=== PATIENT | male | born 1965 ===

== ENCOUNTER 2022-04-12 16:59 | Inpatient (IN) | payer MEDICAID ==
[2022-04-13 21:46] LABS: Hematocrit 37.1 % (35.5-45.6); Mean Corpuscular HGB Conc 35 % (32-34); Mean Corpuscular Volume 88 fl (84-94); Platelet Count 139 K/mm3 (140-440); Red Blood Count 4.24 M/mm3 (3.65-5.03); Red Cell Distribution Width 13.3 % (13.2-15.2)
[2022-04-13 22:03] LABS: Alanine Aminotransferase 38 units/L (7-56); Albumin 3.6 g/dL (3.9-5); BUN/Creatinine Ratio 14; Blood Urea Nitrogen 11 mg/dL (9-20); Calcium 8.9 mg/dL (8.4-10.2); Hemolysis Index 72
[2022-04-13 22:27] LABS: Eosinophils % (Manual) 0 % (0.0-4.3); Platelet Estimate Consistent w Auto; RBC Morphology Normal; Total Cells Counted 100
[2022-04-13] MEDS: INSULIN LISPRO 100 UNIT/ML SUB-Q SCH (22:35)
[2022-04-13] MEDS ORDERED: QUEtiapine 25 MG TAB PO SCH (23:00)
[2022-04-13] MEDS: ACETAMINOPHEN 325 MG TAB PO PRN (23:19)
[2022-04-13] MEDS: hydrOXYzine PAMOATE 25 MG CAP PO PRN (23:19)
--- NOTE | 2022-04-14 10:41 | History and Physical Report ---
GP History & Physical - History of Present Illness Date of admission: 04/13/22 Date of Examination: 04/14/22 Reason for Admission: Danger to self, Failure of Outpatient Treatment, Severe anxiety/depression History of Present Illness: The patient was seen today. He was admitted for suicidal thoughts. The patient says he had just got out of correction and was having bad thoughts. The patient also says he had been off his meds. He says he has a history of Bipolar. He says he takes seroquel 25mg three times daily, celexa 40 and trazodone 50. The patient denies hallucinations. He says he had been depressed about things in his life. He denies any illicit drug use, alcohol or nicotine. PAST PSYCHIATRIC HISTORY: Diagnoses: Bipolar Suicide attempts or Self-harm behavior: Yes Prior psychiatric hospitalizations: Yes Substance Abuse history: Denies Previous psychiatric medications tried: seroquel, celexa, trazodone Outpatient treatment: yes PAST MEDICAL HISTORY: None reported Family Psychiatric History: None reported or documented SOCIAL HISTORY Marital Status: Single Living Arrangements: alone Employment Status: Disabled Access to guns/weapons: Denies Education: History of Abuse: Denies Legal History: Denies REVIEW OF SYSTEMS ROS cannot be reliably obtained from the patient due to her confusion and somnolence. Constitutional: Negative for weight loss ENT: Negative for stridor Respiratory: Negative for cough or hemoptysis All other systems reviewed and are negative Diagnoses: Bipolar Disorder Treatment Plan Patient will be admitted for inpatient psychiatric evaluation, medication adjustment and close monitoring The patient's behavior, mood, sleep and appetite will be closely monitored. Patient will be enrolled in individual and group therapeutic sessions and encouraged to attend. Patient will be provided with a safe and structured environment. Patient's physical health needs will be addressed by the Hospitalist. Hospitalist Consulted Labs including CBC, CMP, Lipid profile and Hemoglobin A1C ordered Social Assessment will be completed and the Residential Monitor will work with patient and family to ensure a suitable and safe disposition Medication adjustment will be made as clinically indicated Celexa 40mg po daily Trazodone 50mg po qhs Increase Seroquel 25mg po TID The patient agreed on the treatment plan, understood LOS: 7 days Case staffed with Dr. Cruz Legal Status: Voluntary Reaction to Hospitalization: Accepting Medications and Allergies Allergies Allergy/AdvReac Type Severity Reaction Status Date / Time No Known Allergies Allergy Unverified 04/13/22 15:47 Home Medications Medication Instructions Recorded Confirmed Last Taken Type Acetaminophen [Tylenol] 650 mg PO Q6HR PRN 04/13/22 04/13/22 Unknown History AtorvaSTATin [Lipitor] 20 mg PO HS 04/13/22 04/13/22 Unknown History Gabapentin [Neurontin] 300 mg PO TID 04/13/22 04/13/22 Unknown History Insulin Glargine [Lantus VIAL] 40 unit SUB-Q Q 04/13/22 04/13/22 Unknown History Nabumetone [Relafen] 500 mg PO DAILY 04/13/22 04/13/22 Unknown History QUEtiapine [SEROquel] 25 mg PO BID 04/13/22 04/13/22 Unknown History busPIRone [Buspar] 5 mg PO TID 04/13/22 04/13/22 Unknown History hydrOXYzine HCL [Atarax] 25 mg PO Q6HR PRN 04/13/22 04/13/22 Unknown History lisinopriL [Lisinopril] 20 mg PO DAILY 04/13/22 04/13/22 Unknown History tiZANidine [Zanaflex 4mg TAB] 4 mg PO TID PRN 04/13/22 04/13/22 Unknown History Active Meds: Active Medications Acetaminophen (Acetaminophen 325 Mg Tab) 650 mg PO Q6H PRN PRN Reason: Pain, Mild (1-3) Last Admin: 04/13/22 23:19 Dose: 650 mg Buspirone HCl (Buspirone 5 Mg Tab) 5 mg PO TID [facility] Gabapentin (Gabapentin 300 Mg Cap) 300 mg PO TID [facility] Hydroxyzine Pamoate (Hydroxyzine Pamoate 25 Mg Cap) 25 mg PO Q6H PRN PRN Reason: Anxiety Last Admin: 04/13/22 23:19 Dose: 25 mg Insulin Human Lispro (Insulin Lispro 100 Unit/Ml) 0 unit SUB-Q [facility]; Protocol Last Admin: 04/13/22 22:35 Dose: 3 unit Quetiapine Fumarate (Quetiapine 25 Mg Tab) 25 mg PO BID [facility] Last Admin: 04/13/22 23:19 Dose: 25 mg Tizanidine HCl (Tizanidine Tab 4 Mg Tab) 4 mg PO Q8H PRN PRN Reason: Muscle Spasm Results - Results Labs/Vitals: Laboratory Last Values WBC 3.7 K/mm3 (4.5-11.0) L 04/13/22 21:12 RBC 4.24 M/mm3 (3.65-5.03) 04/13/22 21:12 Hgb 13.0 gm/dl (11.8-15.2) 04/13/22 21:12 Hct 37.1 % (35.5-45.6) 04/13/22 21:12 MCV 88 fl (84-94) 04/13/22 21:12 MCH 31 pg (28-32) 04/13/22 21:12 MCHC 35 % (32-34) H 04/13/22 21:12 RDW 13.3 % (13.2-15.2) 04/13/22 21:12 Plt Count 139 K/mm3 (140-440) L 04/13/22 21:12 Lymph % (Auto) Sales Teacher 04/13/22 21:12 Add Manual Diff Complete 04/13/22 21:12 Total Counted 100 04/13/22 21:12 Seg Neutrophils % Sales Teacher 04/13/22 21:12 Seg Neuts % (Manual) 28.0 % (40.0-70.0) L 04/13/22 21:12 Band Neutrophils % 0 % 04/13/22 21:12 Lymphocytes % (Manual) 64.0 % (13.4-35.0) H 04/13/22 21:12 Reactive Lymphs % (Man) 0 % 04/13/22 21:12 Monocytes % (Manual) 7.0 % (0.0-7.3) 04/13/22 21:12 Eosinophils % (Manual) 0 % (0.0-4.3) 04/13/22 21:12 Basophils % (Manual) 1.0 % (0.0-1.8) 04/13/22 21:12 Metamyelocytes % 0 % 04/13/22 21:12 Myelocytes % 0 % 04/13/22 21:12 Promyelocytes % 0 % 04/13/22 21:12 Blast Cells % 0 % 04/13/22 21:12 Nucleated RBC % Not Reportable 04/13/22 21:12 Seg Neutrophils # Man 1.0 K/mm3 (1.8-7.7) L 04/13/22 21:12 Band Neutrophils # 0.0 K/mm3 04/13/22 21:12 Lymphocytes # (Manual) 2.4 K/mm3 (1.2-5.4) 04/13/22 21:12 Abs React Lymphs (Man) 0.0 K/mm3 04/13/22 21:12 Monocytes # (Manual) 0.3 K/mm3 (0.0-0.8) 04/13/22 21:12 Eosinophils # (Manual) 0.0 K/mm3 (0.0-0.4) 04/13/22 21:12 Basophils # (Manual) 0.0 K/mm3 (0.0-0.1) 04/13/22 21:12 Metamyelocytes # 0.0 K/mm3 04/13/22 21:12 Myelocytes # 0.0 K/mm3 04/13/22 21:12 Promyelocytes # 0.0 K/mm3 04/13/22 21:12 Blast Cells # 0.0 K/mm3 04/13/22 21:12 WBC Morphology Not Reportable 04/13/22 21:12 Hypersegmented Neuts Not Reportable 04/13/22 21:12 Hyposegmented Neuts Not Reportable 04/13/22 21:12 Hypogranular Neuts Not Reportable 04/13/22 21:12 Smudge Cells Not Reportable 04/13/22 21:12 Toxic Granulation Not Reportable 04/13/22 21:12 Toxic Vacuolation Not Reportable 04/13/22 21:12 Dohle Bodies Not Reportable 04/13/22 21:12 Pelger-Huet Anomaly Not Reportable 04/13/22 21:12 Davida Rods Not Reportable 04/13/22 21:12 Platelet Estimate Consistent w auto 04/13/22 21:12 Clumped Platelets Not Reportable 04/13/22 21:12 Plt Clumps, EDTA Not Reportable 04/13/22 21:12 Large Platelets Not Reportable 04/13/22 21:12 Giant Platelets Not Reportable 04/13/22 21:12 Platelet Satelliting Not Reportable 04/13/22 21:12 Plt Morphology Comment Not Reportable 04/13/22 21:12 RBC Morphology Normal 04/13/22 21:12 Dimorphic RBCs Not Reportable 04/13/22 21:12 Polychromasia Not Reportable 04/13/22 21:12 Hypochromasia Not Reportable 04/13/22 21:12 Poikilocytosis Not Reportable 04/13/22 21:12 Anisocytosis Not Reportable 04/13/22 21:12 Microcytosis Not Reportable 04/13/22 21:12 Macrocytosis Not Reportable 04/13/22 21:12 Spherocytes Not Reportable 04/13/22 21:12 Pappenheimer Bodies Not Reportable 04/13/22 21:12 Sickle Cells Not Reportable 04/13/22 21:12 Target Cells Not Reportable 04/13/22 21:12 Tear Drop Cells Not Reportable 04/13/22 21:12 Ovalocytes Not Reportable 04/13/22 21:12 Helmet Cells Not Reportable 04/13/22 21:12 [place] Bodies Not Reportable 04/13/22 21:12 Mayer Rings Not Reportable 04/13/22 21:12 [place] Cells Not Reportable 04/13/22 21:12 Bite Cells Not Reportable 04/13/22 21:12 Crenated Cell Not Reportable 04/13/22 21:12 Elliptocytes Not Reportable 04/13/22 21:12 Acanthocytes (Spur) Not Reportable 04/13/22 21:12 Rouleaux Not Reportable 04/13/22 21:12 Hemoglobin C Crystals Not Reportable 04/13/22 21:12 Schistocytes Not Reportable 04/13/22 21:12 Malaria parasites Not Reportable 04/13/22 21:12 Jose Bodies Not Reportable 04/13/22 21:12 Hem Pathologist Commnt No 04/13/22 21:12 Sodium 142 mmol/L (137-145) 04/13/22 21:12 Potassium 4.0 mmol/L (3.6-5.0) 04/13/22 21:12 Chloride 108.7 mmol/L (98-107) H 04/13/22 21:12 Carbon Dioxide 23 mmol/L (22-30) 04/13/22 21:12 Anion Gap 14 mmol/L 04/13/22 21:12 BUN 11 mg/dL (9-20) 04/13/22 21:12 Creatinine 0.8 mg/dL (0.8-1.3) 04/13/22 21:12 Estimated GFR > 60 ml/min 04/13/22 21:12 BUN/Creatinine Ratio 14 % 04/13/22 21:12 Glucose 158 mg/dL (75-100) H 04/13/22 21:12 POC Glucose 108 mg/dL (70-105) H 04/14/22 06:55 Calcium 8.9 mg/dL (8.4-10.2) 04/13/22 21:12 Total Bilirubin 0.30 mg/dL (0.1-1.2) 04/13/22 21:12 AST 39 units/L (5-40) 04/13/22 21:12 ALT 38 units/L (7-56) 04/13/22 21:12 Alkaline Phosphatase 65 units/L (35-129) 04/13/22 21:12 Total Protein 6.3 g/dL (6.3-8.2) 04/13/22 21:12 Albumin 3.6 g/dL (3.9-5) L 04/13/22 21:12 Albumin/Globulin Ratio 1.3 % 04/13/22 21:12 Last Vital Signs Temp 98.6 F 04/13/22 22:00 Pulse 86 04/13/22 22:00 Resp 99 H 04/13/22 22:00 BP 132/77 04/13/22 22:00 Pulse Ox 99 04/13/22 22:00 Physical Examination - Constitutional Vitals: Vital Signs Temp Pulse Resp BP Pulse Ox 98.6 F 86 99 H 132/77 99 04/13/22 22:00 04/13/22 22:00 04/13/22 22:00 04/13/22 22:00 04/13/22 22:00 Temperature -Last 24 Hours Temperature 98.6 F Mental Status Exam - Vital signs Last Vital Signs Temp 98.6 F 04/13/22 22:00 Pulse 86 04/13/22 22:00 Resp 99 H 04/13/22 22:00 BP 132/77 04/13/22 22:00 Pulse Ox 99 04/13/22 22:00 Physician Certification - Certification Statement Physician Certification Statement: This is an acknowledgement statement that LUZ ELENA BIRCH is a 56 year old M who requires inpatient psychiatric admission for treatment which could reasonably be expected to improve the patient's condition for Estimated period of time patient will need to remain in the hospital: [ ] Plan for post-hospital care: [ ]
[2022-04-14] MEDS: INSULIN LISPRO 100 UNIT/ML SUB-Q SCH ×5 (10:53→23:09)
[2022-04-14] MEDS: busPIRone 5 MG TAB PO SCH ×3 (10:57→21:57)
[2022-04-14] MEDS: GABAPENTIN 300 MG CAP PO SCH ×3 (10:57→21:57)
[2022-04-14] MEDS: QUEtiapine 25 MG TAB PO SCH ×2 (14:00→21:57)
[2022-04-14] MEDS: CITALOPRAM 20 MG TAB PO SCH (16:41)
[2022-04-14] MEDS: ACETAMINOPHEN 325 MG TAB PO PRN (17:31)
--- NOTE | 2022-04-14 20:31 | Consultation ---
History of Present Illness - Reason for Consult Consult date: 04/14/22 Medical consult/management Requesting physician: AYUSH TOWNSEND - History of Present Illness 56-year-old male patient with significant past medical history of bipolar disorder, severe anxiety, severe depression recently out of long-term was having bad thoughts and was danger to self and failure of outpatient treatment patient was admitted to [facility] psych unit hospitalist services was consulted for medical consult and management patient also has history of peripheral neuropathy, type 2 diabetes mellitus, hypertension, dyslipidemia. Patient also gives history of multiple neck surgeries Patient denies any chest pain or shortness of breath, denies any nausea vomiting headache or dizziness. Past History Past Medical History: diabetes, hypertension, hyperlipidemia, other (Peripheral neuropathy) Past Surgical History: Other (Neck and back surgeries) Social history: denies: smoking, alcohol abuse, prescription drug abuse Family history: no significant family history Medications and Allergies Allergies Allergy/AdvReac Type Severity Reaction Status Date / Time No Known Allergies Allergy Verified 04/14/22 11:25 Home Medications Medication Instructions Recorded Confirmed Last Taken Type Acetaminophen [Tylenol] 650 mg PO Q6HR PRN 04/13/22 04/13/22 Unknown History AtorvaSTATin [Lipitor] 20 mg PO HS 04/13/22 04/13/22 Unknown History Gabapentin [Neurontin] 300 mg PO TID 04/13/22 04/13/22 Unknown History Insulin Glargine [Lantus VIAL] 40 unit SUB-Q [facility] 04/13/22 04/13/22 Unknown History Nabumetone [Relafen] 500 mg PO DAILY 04/13/22 04/13/22 Unknown History QUEtiapine [SEROquel] 25 mg PO BID 04/13/22 04/13/22 Unknown History busPIRone [Buspar] 5 mg PO TID 04/13/22 04/13/22 Unknown History hydrOXYzine HCL [Atarax] 25 mg PO Q6HR PRN 04/13/22 04/13/22 Unknown History lisinopriL [Lisinopril] 20 mg PO DAILY 04/13/22 04/13/22 Unknown History tiZANidine [Zanaflex 4mg TAB] 4 mg PO TID PRN 04/13/22 04/13/22 Unknown History Active Meds: Active Medications Acetaminophen (Acetaminophen 325 Mg Tab) 650 mg PO Q6H PRN PRN Reason: Pain, Mild (1-3) Last Admin: 04/14/22 17:31 Dose: 650 mg Buspirone HCl (Buspirone 5 Mg Tab) 5 mg PO TID [facility] Last Admin: 04/14/22 16:44 Dose: 5 mg Citalopram Hydrobromide (Citalopram 20 Mg Tab) 40 mg PO QDAY [facility] Last Admin: 04/14/22 16:41 Dose: 40 mg Gabapentin (Gabapentin 300 Mg Cap) 300 mg PO TID [facility] Last Admin: 04/14/22 16:41 Dose: 300 mg Hydroxyzine Pamoate (Hydroxyzine Pamoate 25 Mg Cap) 25 mg PO Q6H PRN PRN Reason: Anxiety Last Admin: 04/13/22 23:19 Dose: 25 mg Insulin Human Lispro (Insulin Lispro 100 Unit/Ml) 0 unit SUB-Q [facility]; Protocol Last Admin: 04/14/22 16:55 Dose: 3 unit Quetiapine Fumarate (Quetiapine 25 Mg Tab) 25 mg PO TID [facility] Last Admin: 04/14/22 14:00 Dose: Not Given Tizanidine HCl (Tizanidine Tab 4 Mg Tab) 4 mg PO Q8H PRN PRN Reason: Muscle Spasm Trazodone HCl (Trazodone 50 Mg Tab) 50 mg PO QHS [facility] Review of Systems Constitutional: weakness, no weight loss, no weight gain, no fever, no chills Ears, nose, mouth and throat: no nasal congestion, no nasal discharge Cardiovascular: no chest pain, no orthopnea Respiratory: shortness of breath, dyspnea on exertion, no cough, no cough with sputum Gastrointestinal: no nausea, no vomiting, no diarrhea Genitourinary Male: no dysuria, no hematuria Musculoskeletal: no myalgias, no arthritis Integumentary: no rash, no lesions Neurological: no paralysis, no weakness, no parathesias Psychiatric: anxiety, no memory loss Endocrine: no cold intolerance, no heat intolerance Hematologic/Lymphatic: no easy bruising, no easy bleeding Allergic/Immunologic: no urticaria, no allergic rhinitis Exam - Constitutional Vitals: Temp Pulse Resp BP Pulse Ox 98.6 F 86 99 H 132/77 99 04/13/22 22:00 04/13/22 22:00 04/13/22 22:00 04/13/22 22:00 04/13/22 22:00 General appearance: Present: no acute distress, well-nourished - EENT Eyes: Present: PERRL, EOM intact - Neck Neck: Present: supple, normal ROM - Respiratory Respiratory effort: normal Respiratory: bilateral: diminished, negative: rales, rhonchi, wheezing - Cardiovascular Rhythm: regular Heart Sounds: Present: S1 & S2 - Extremities Extremities: no ischemia, No edema - Abdominal General gastrointestinal: Present: soft, non-tender, non-distended, normal bowel sounds - Integumentary Integumentary: Present: clear, warm - Musculoskeletal Musculoskeletal: strength equal bilaterally, generalized weakness - Psychiatric Psychiatric: appropriate mood/affect, cooperative - Neurologic Neurologic: moves all extremities Results - Labs CBC & Chem 7: 04/13/22 21:12 04/13/22 21:12 Labs: Abnormal lab results 04/13/22 04/13/22 04/14/22 Range/Units 21:12 21:12 06:55 WBC 3.7 L (4.5-11.0) K/mm3 MCHC 35 H (32-34) % Plt Count 139 L (140-440) K/mm3 Seg Neuts % (Manual) 28.0 L (40.0-70.0) % Lymphocytes % (Manual) 64.0 H (13.4-35.0) % Seg Neutrophils # Man 1.0 L (1.8-7.7) K/mm3 Chloride 108.7 H (98-107) mmol/L Glucose 158 H (75-100) mg/dL POC Glucose 108 H (70-105) mg/dL Albumin 3.6 L (3.9-5) g/dL 04/14/22 04/14/22 Range/Units 11:02 16:20 WBC (4.5-11.0) K/mm3 MCHC (32-34) % Plt Count (140-440) K/mm3 Seg Neuts % (Manual) (40.0-70.0) % Lymphocytes % (Manual) (13.4-35.0) % Seg Neutrophils # Man (1.8-7.7) K/mm3 Chloride (98-107) mmol/L Glucose (75-100) mg/dL POC Glucose 120 H 218 H (70-105) mg/dL Albumin (3.9-5) g/dL Assessment and Plan Suicidal ideation/danger to self/severe anxiety/severe depression; Management per psych team, supportive care -- Hypertension; moderate control Resume home antihypertensives and as needed medications -- Peripheral neuropathy; Resume home gabapentin and supportive care -- Dyslipidemia; Low-cholesterol diet, and statin -- Type 2 diabetes mellitus; Accu-Chek, sliding scale coverage, ADA diet Long-acting insulin as needed -- DVT prophylaxis; SCDs while resting, ambulate as tolerated -- Full CODE STATUS; Closely monitor the patient and adjust the management as needed Plan of care reviewed with the patient and his nurse Thank you for this consultation We will follow the patient along with you Call us with questions
[2022-04-14] MEDS: traZODone 50 MG TAB PO SCH (21:57)
--- NOTE | 2022-04-15 08:22 | Progress Note ---
Subjective Date of service: 04/15/22 Principal diagnosis: bipolar disorder Subjective Comment: The patient was seen today. He is calm and cooperative. He denies SI/HI or hallucinations of any kind. REVIEW OF SYSTEMS ROS cannot be reliably obtained from the patient due to her confusion and somnolence. Constitutional: Negative for weight loss ENT: Negative for stridor Respiratory: Negative for cough or hemoptysis All other systems reviewed and are negative MENTAL STATUS EXAMINATION General Appearance and Behavior: Age appropriate, wearing appropriate clothes, cooperative, polite with questioning, good eye contact Cooperation: cooperative Psychomotor Behavior: Psychomotor normal Mood: good Affect and affective range: congruent with stated affect Thought Process: Goal directed Thought Content: None Speech: Normal volume, Regular rate and rhythm Suicidal Ideation: Denies Homicidal Ideation: Denies Hallucination: Denies Delusions: None elicited Impulse Control: Limited Insight and Judgment: Limited Memory: Intact Attention:attentive Orientation: Alert and oriented Diagnoses: Bipolar Disorder Treatment Plan Patient will be admitted for inpatient psychiatric evaluation, medication adjustment and close monitoring The patient's behavior, mood, sleep and appetite will be closely monitored. Patient will be enrolled in individual and group therapeutic sessions and encouraged to attend. Patient will be provided with a safe and structured environment. Patient's physical health needs will be addressed by the Hospitalist. Hospitalist Consulted Labs including CBC, CMP, Lipid profile and Hemoglobin A1C ordered Social Assessment will be completed and the Software Engineer Web Applications will work with patient and family to ensure a suitable and safe disposition Medication adjustment will be made as clinically indicated No changes made today The patient agreed on the treatment plan, understood LOS: 7 days Case staffed with Dr. Cruz Medications and Allergies Allergies Allergy/AdvReac Type Severity Reaction Status Date / Time No Known Allergies Allergy Verified 04/14/22 11:25 Home Medications Medication Instructions Recorded Confirmed Last Taken Type Acetaminophen [Tylenol] 650 mg PO Q6HR PRN 04/13/22 04/13/22 Unknown History AtorvaSTATin [Lipitor] 20 mg PO HS 04/13/22 04/13/22 Unknown History Gabapentin [Neurontin] 300 mg PO TID 04/13/22 04/13/22 Unknown History Insulin Glargine [Lantus VIAL] 40 unit SUB-Q QHS 04/13/22 04/13/22 Unknown History Nabumetone [Relafen] 500 mg PO DAILY 04/13/22 04/13/22 Unknown History QUEtiapine [SEROquel] 25 mg PO BID 04/13/22 04/13/22 Unknown History busPIRone [Buspar] 5 mg PO TID 04/13/22 04/13/22 Unknown History hydrOXYzine HCL [Atarax] 25 mg PO Q6HR PRN 04/13/22 04/13/22 Unknown History lisinopriL [Lisinopril] 20 mg PO DAILY 04/13/22 04/13/22 Unknown History tiZANidine [Zanaflex 4mg TAB] 4 mg PO TID PRN 04/13/22 04/13/22 Unknown History Active Meds: Active Medications Acetaminophen (Acetaminophen 325 Mg Tab) 650 mg PO Q6H PRN PRN Reason: Pain, Mild (1-3) Last Admin: 04/14/22 17:31 Dose: 650 mg Buspirone HCl (Buspirone 5 Mg Tab) 5 mg PO TID ON LICENSE OF [facility] Last Admin: 04/14/22 21:57 Dose: 5 mg Citalopram Hydrobromide (Citalopram 20 Mg Tab) 40 mg PO QDAY ON LICENSE OF [facility] Last Admin: 04/14/22 16:41 Dose: 40 mg Gabapentin (Gabapentin 300 Mg Cap) 300 mg PO TID ON LICENSE OF [facility] Last Admin: 04/14/22 21:57 Dose: 300 mg Hydroxyzine Pamoate (Hydroxyzine Pamoate 25 Mg Cap) 25 mg PO Q6H PRN PRN Reason: Anxiety Last Admin: 04/13/22 23:19 Dose: 25 mg Insulin Human Lispro (Insulin Lispro 100 Unit/Ml) 0 unit SUB-Q [facility] ON LICENSE OF [facility]; Protocol Last Admin: 04/14/22 23:09 Dose: 2 unit Quetiapine Fumarate (Quetiapine 25 Mg Tab) 25 mg PO TID ON LICENSE OF [facility] Last Admin: 04/14/22 21:57 Dose: 25 mg Tizanidine HCl (Tizanidine Tab 4 Mg Tab) 4 mg PO Q8H PRN PRN Reason: Muscle Spasm Trazodone HCl (Trazodone 50 Mg Tab) 50 mg PO QHS ON LICENSE OF [facility] Last Admin: 04/14/22 21:57 Dose: 50 mg Results - Results Labs/Vitals: Laboratory Last Values WBC 3.7 K/mm3 (4.5-11.0) L 04/13/22 21:12 RBC 4.24 M/mm3 (3.65-5.03) 04/13/22 21:12 Hgb 13.0 gm/dl (11.8-15.2) 04/13/22 21:12 Hct 37.1 % (35.5-45.6) 04/13/22 21:12 MCV 88 fl (84-94) 04/13/22 21:12 MCH 31 pg (28-32) 04/13/22 21:12 MCHC 35 % (32-34) H 04/13/22 21:12 RDW 13.3 % (13.2-15.2) 04/13/22 21:12 Plt Count 139 K/mm3 (140-440) L 04/13/22 21:12 Lymph % (Auto) Chiropractor Sole Practitioner 04/13/22 21:12 Add Manual Diff Complete 04/13/22 21:12 Total Counted 100 04/13/22 21:12 Seg Neutrophils % Chiropractor Sole Practitioner 04/13/22 21:12 Seg Neuts % (Manual) 28.0 % (40.0-70.0) L 04/13/22 21:12 Band Neutrophils % 0 % 04/13/22 21:12 Lymphocytes % (Manual) 64.0 % (13.4-35.0) H 04/13/22 21:12 Reactive Lymphs % (Man) 0 % 04/13/22 21:12 Monocytes % (Manual) 7.0 % (0.0-7.3) 04/13/22 21:12 Eosinophils % (Manual) 0 % (0.0-4.3) 04/13/22 21:12 Basophils % (Manual) 1.0 % (0.0-1.8) 04/13/22 21:12 Metamyelocytes % 0 % 04/13/22 21:12 Myelocytes % 0 % 04/13/22 21:12 Promyelocytes % 0 % 04/13/22 21:12 Blast Cells % 0 % 04/13/22 21:12 Nucleated RBC % Not Reportable 04/13/22 21:12 Seg Neutrophils # Man 1.0 K/mm3 (1.8-7.7) L 04/13/22 21:12 Band Neutrophils # 0.0 K/mm3 04/13/22 21:12 Lymphocytes # (Manual) 2.4 K/mm3 (1.2-5.4) 04/13/22 21:12 Abs React Lymphs (Man) 0.0 K/mm3 04/13/22 21:12 Monocytes # (Manual) 0.3 K/mm3 (0.0-0.8) 04/13/22 21:12 Eosinophils # (Manual) 0.0 K/mm3 (0.0-0.4) 04/13/22 21:12 Basophils # (Manual) 0.0 K/mm3 (0.0-0.1) 04/13/22 21:12 Metamyelocytes # 0.0 K/mm3 04/13/22 21:12 Myelocytes # 0.0 K/mm3 04/13/22 21:12 Promyelocytes # 0.0 K/mm3 04/13/22 21:12 Blast Cells # 0.0 K/mm3 04/13/22 21:12 WBC Morphology Not Reportable 04/13/22 21:12 Hypersegmented Neuts Not Reportable 04/13/22 21:12 Hyposegmented Neuts Not Reportable 04/13/22 21:12 Hypogranular Neuts Not Reportable 04/13/22 21:12 Smudge Cells Not Reportable 04/13/22 21:12 Toxic Granulation Not Reportable 04/13/22 21:12 Toxic Vacuolation Not Reportable 04/13/22 21:12 Dohle Bodies Not Reportable 04/13/22 21:12 Pelger-Huet Anomaly Not Reportable 04/13/22 21:12 Davida Rods Not Reportable 04/13/22 21:12 Platelet Estimate Consistent w auto 04/13/22 21:12 Clumped Platelets Not Reportable 04/13/22 21:12 Plt Clumps, EDTA Not Reportable 04/13/22 21:12 Large Platelets Not Reportable 04/13/22 21:12 Giant Platelets Not Reportable 04/13/22 21:12 Platelet Satelliting Not Reportable 04/13/22 21:12 Plt Morphology Comment Not Reportable 04/13/22 21:12 RBC Morphology Normal 04/13/22 21:12 Dimorphic RBCs Not Reportable 04/13/22 21:12 Polychromasia Not Reportable 04/13/22 21:12 Hypochromasia Not Reportable 04/13/22 21:12 Poikilocytosis Not Reportable 04/13/22 21:12 Anisocytosis Not Reportable 04/13/22 21:12 Microcytosis Not Reportable 04/13/22 21:12 Macrocytosis Not Reportable 04/13/22 21:12 Spherocytes Not Reportable 04/13/22 21:12 Pappenheimer Bodies Not Reportable 04/13/22 21:12 Sickle Cells Not Reportable 04/13/22 21:12 Target Cells Not Reportable 04/13/22 21:12 Tear Drop Cells Not Reportable 04/13/22 21:12 Ovalocytes Not Reportable 04/13/22 21:12 Helmet Cells Not Reportable 04/13/22 21:12 Boateng-[place] Bodies Not Reportable 04/13/22 21:12 [place] Rings Not Reportable 04/13/22 21:12 [place] Cells Not Reportable 04/13/22 21:12 Bite Cells Not Reportable 04/13/22 21:12 Crenated Cell Not Reportable 04/13/22 21:12 Elliptocytes Not Reportable 04/13/22 21:12 Acanthocytes (Spur) Not Reportable 04/13/22 21:12 Rouleaux Not Reportable 04/13/22 21:12 Hemoglobin C Crystals Not Reportable 04/13/22 21:12 Schistocytes Not Reportable 04/13/22 21:12 Malaria parasites Not Reportable 04/13/22 21:12 Jose Bodies Not Reportable 04/13/22 21:12 Hem Pathologist Commnt No 04/13/22 21:12 Sodium 142 mmol/L (137-145) 04/13/22 21:12 Potassium 4.0 mmol/L (3.6-5.0) 04/13/22 21:12 Chloride 108.7 mmol/L (98-107) H 04/13/22 21:12 Carbon Dioxide 23 mmol/L (22-30) 04/13/22 21:12 Anion Gap 14 mmol/L 04/13/22 21:12 BUN 11 mg/dL (9-20) 04/13/22 21:12 Creatinine 0.8 mg/dL (0.8-1.3) 04/13/22 21:12 Estimated GFR > 60 ml/min 04/13/22 21:12 BUN/Creatinine Ratio 14 % 04/13/22 21:12 Glucose 158 mg/dL (75-100) H 04/13/22 21:12 POC Glucose 153 mg/dL (70-105) H 04/15/22 08:07 Calcium 8.9 mg/dL (8.4-10.2) 04/13/22 21:12 Total Bilirubin 0.30 mg/dL (0.1-1.2) 04/13/22 21:12 AST 39 units/L (5-40) 04/13/22 21:12 ALT 38 units/L (7-56) 04/13/22 21:12 Alkaline Phosphatase 65 units/L (35-129) 04/13/22 21:12 Total Protein 6.3 g/dL (6.3-8.2) 04/13/22 21:12 Albumin 3.6 g/dL (3.9-5) L 04/13/22 21:12 Albumin/Globulin Ratio 1.3 % 04/13/22 21:12 Last Vital Signs Temp 97.4 F L 04/15/22 01:22 Pulse 97 H 04/15/22 01:22 Resp 16 04/15/22 01:22 BP 147/77 04/15/22 01:22 Pulse Ox 99 04/15/22 01:22
[2022-04-15] MEDS: busPIRone 5 MG TAB PO SCH ×3 (09:18→21:09)
[2022-04-15] MEDS: GABAPENTIN 300 MG CAP PO SCH ×3 (09:18→21:09)
[2022-04-15] MEDS: QUEtiapine 25 MG TAB PO SCH ×3 (09:18→21:09)
[2022-04-15] MEDS: CITALOPRAM 20 MG TAB PO SCH (09:18)
[2022-04-15] MEDS: INSULIN LISPRO 100 UNIT/ML SUB-Q SCH ×4 (09:19→21:32)
[2022-04-15] MEDS: tiZANidine TAB 4 MG TAB PO PRN ×2 (14:13→21:09)
--- NOTE | 2022-04-15 19:49 | Progress Note ---
Assessment and Plan Assessment and plan: Suicidal ideation/danger to self/severe anxiety/severe depression; Management per psych team, supportive care -- Hypertension; moderate control Resume home antihypertensives and as needed medications -- Peripheral neuropathy; Resume home gabapentin and supportive care -- Dyslipidemia; Low-cholesterol diet, and statin -- Type 2 diabetes mellitus; Accu-Chek, sliding scale coverage, ADA diet Long-acting insulin as needed -- DVT prophylaxis; SCDs while resting, ambulate as tolerated -- Full CODE STATUS; Closely monitor the patient and adjust the management as needed Plan of care reviewed with the patient and his nurse Thank you for this consultation We will follow the patient along with you Call us with questions Closely monitor the patient and adjust management as needed Psych recommendations noted and appreciated History Interval history: I have seen and examined the patient at the bedside Patient complains of severe neck pain Request pain medications Patient does not feel good wants to go home Vital signs noted Hospitalist Physical - Constitutional Vitals: Temp Pulse Resp BP Pulse Ox 97.4 F L 88 16 119/77 99 04/15/22 01:22 04/15/22 09:45 04/15/22 09:45 04/15/22 09:45 04/15/22 09:45 General appearance: Present: mild distress, well-nourished - EENT Eyes: Present: PERRL, EOM intact ENT: hearing intact, clear oral mucosa - Neck Neck: Present: other (Severe stiffness and tenderness which is chronic due to multiple neck surgeries) - Respiratory Respiratory effort: normal Respiratory: bilateral: diminished, negative: rales, rhonchi, wheezing - Cardiovascular Rhythm: regular Heart Sounds: Present: S1 & S2 - Extremities Extremities: no ischemia, No edema - Abdominal General gastrointestinal: soft, non-tender, non-distended, normal bowel sounds - Integumentary Integumentary: Present: clear, warm - Psychiatric Psychiatric: appropriate mood/affect - Neurologic Neurologic: moves all extremities Results - Labs CBC & Chem 7: 04/13/22 21:12 04/13/22 21:12 Labs: Laboratory Last Values WBC 3.7 K/mm3 (4.5-11.0) L 04/13/22 21:12 RBC 4.24 M/mm3 (3.65-5.03) 04/13/22 21:12 Hgb 13.0 gm/dl (11.8-15.2) 04/13/22 21:12 Hct 37.1 % (35.5-45.6) 04/13/22 21:12 MCV 88 fl (84-94) 04/13/22 21:12 MCH 31 pg (28-32) 04/13/22 21:12 MCHC 35 % (32-34) H 04/13/22 21:12 RDW 13.3 % (13.2-15.2) 04/13/22 21:12 Plt Count 139 K/mm3 (140-440) L 04/13/22 21:12 Lymph % (Auto) Commercial Roofer 04/13/22 21:12 Add Manual Diff Complete 04/13/22 21:12 Total Counted 100 04/13/22 21:12 Seg Neutrophils % Commercial Roofer 04/13/22 21:12 Seg Neuts % (Manual) 28.0 % (40.0-70.0) L 04/13/22 21:12 Band Neutrophils % 0 % 04/13/22 21:12 Lymphocytes % (Manual) 64.0 % (13.4-35.0) H 04/13/22 21:12 Reactive Lymphs % (Man) 0 % 04/13/22 21:12 Monocytes % (Manual) 7.0 % (0.0-7.3) 04/13/22 21:12 Eosinophils % (Manual) 0 % (0.0-4.3) 04/13/22 21:12 Basophils % (Manual) 1.0 % (0.0-1.8) 04/13/22 21:12 Metamyelocytes % 0 % 04/13/22 21:12 Myelocytes % 0 % 04/13/22 21:12 Promyelocytes % 0 % 04/13/22 21:12 Blast Cells % 0 % 04/13/22 21:12 Nucleated RBC % Not Reportable 04/13/22 21:12 Seg Neutrophils # Man 1.0 K/mm3 (1.8-7.7) L 04/13/22 21:12 Band Neutrophils # 0.0 K/mm3 04/13/22 21:12 Lymphocytes # (Manual) 2.4 K/mm3 (1.2-5.4) 04/13/22 21:12 Abs React Lymphs (Man) 0.0 K/mm3 04/13/22 21:12 Monocytes # (Manual) 0.3 K/mm3 (0.0-0.8) 04/13/22 21:12 Eosinophils # (Manual) 0.0 K/mm3 (0.0-0.4) 04/13/22 21:12 Basophils # (Manual) 0.0 K/mm3 (0.0-0.1) 04/13/22 21:12 Metamyelocytes # 0.0 K/mm3 04/13/22 21:12 Myelocytes # 0.0 K/mm3 04/13/22 21:12 Promyelocytes # 0.0 K/mm3 04/13/22 21:12 Blast Cells # 0.0 K/mm3 04/13/22 21:12 WBC Morphology Not Reportable 04/13/22 21:12 Hypersegmented Neuts Not Reportable 04/13/22 21:12 Hyposegmented Neuts Not Reportable 04/13/22 21:12 Hypogranular Neuts Not Reportable 04/13/22 21:12 Smudge Cells Not Reportable 04/13/22 21:12 Toxic Granulation Not Reportable 04/13/22 21:12 Toxic Vacuolation Not Reportable 04/13/22 21:12 Dohle Bodies Not Reportable 04/13/22 21:12 Pelger-Huet Anomaly Not Reportable 04/13/22 21:12 Davida Rods Not Reportable 04/13/22 21:12 Platelet Estimate Consistent w auto 04/13/22 21:12 Clumped Platelets Not Reportable 04/13/22 21:12 Plt Clumps, EDTA Not Reportable 04/13/22 21:12 Large Platelets Not Reportable 04/13/22 21:12 Giant Platelets Not Reportable 04/13/22 21:12 Platelet Satelliting Not Reportable 04/13/22 21:12 Plt Morphology Comment Not Reportable 04/13/22 21:12 RBC Morphology Normal 04/13/22 21:12 Dimorphic RBCs Not Reportable 04/13/22 21:12 Polychromasia Not Reportable 04/13/22 21:12 Hypochromasia Not Reportable 04/13/22 21:12 Poikilocytosis Not Reportable 04/13/22 21:12 Anisocytosis Not Reportable 04/13/22 21:12 Microcytosis Not Reportable 04/13/22 21:12 Macrocytosis Not Reportable 04/13/22 21:12 Spherocytes Not Reportable 04/13/22 21:12 Pappenheimer Bodies Not Reportable 04/13/22 21:12 Sickle Cells Not Reportable 04/13/22 21:12 Target Cells Not Reportable 04/13/22 21:12 Tear Drop Cells Not Reportable 04/13/22 21:12 Ovalocytes Not Reportable 04/13/22 21:12 Helmet Cells Not Reportable 04/13/22 21:12 Boateng-[place] Bodies Not Reportable 04/13/22 21:12 [place] Rings Not Reportable 04/13/22 21:12 Martina Cells Not Reportable 04/13/22 21:12 Bite Cells Not Reportable 04/13/22 21:12 Crenated Cell Not Reportable 04/13/22 21:12 Elliptocytes Not Reportable 04/13/22 21:12 Acanthocytes (Spur) Not Reportable 04/13/22 21:12 Rouleaux Not Reportable 04/13/22 21:12 Hemoglobin C Crystals Not Reportable 04/13/22 21:12 Schistocytes Not Reportable 04/13/22 21:12 Malaria parasites Not Reportable 04/13/22 21:12 Jose Bodies Not Reportable 04/13/22 21:12 Hem Pathologist Commnt No 04/13/22 21:12 Sodium 142 mmol/L (137-145) 04/13/22 21:12 Potassium 4.0 mmol/L (3.6-5.0) 04/13/22 21:12 Chloride 108.7 mmol/L (98-107) H 04/13/22 21:12 Carbon Dioxide 23 mmol/L (22-30) 04/13/22 21:12 Anion Gap 14 mmol/L 04/13/22 21:12 BUN 11 mg/dL (9-20) 04/13/22 21:12 Creatinine 0.8 mg/dL (0.8-1.3) 04/13/22 21:12 Estimated GFR > 60 ml/min 04/13/22 21:12 BUN/Creatinine Ratio 14 % 04/13/22 21:12 Glucose 158 mg/dL (75-100) H 04/13/22 21:12 POC Glucose 187 mg/dL (70-105) H 04/15/22 15:54 Calcium 8.9 mg/dL (8.4-10.2) 04/13/22 21:12 Total Bilirubin 0.30 mg/dL (0.1-1.2) 04/13/22 21:12 AST 39 units/L (5-40) 04/13/22 21:12 ALT 38 units/L (7-56) 04/13/22 21:12 Alkaline Phosphatase 65 units/L (35-129) 04/13/22 21:12 Total Protein 6.3 g/dL (6.3-8.2) 04/13/22 21:12 Albumin 3.6 g/dL (3.9-5) L 04/13/22 21:12 Albumin/Globulin Ratio 1.3 % 04/13/22 21:12 Olivera/IV: Voiding Method Toilet Active Medications - Current Medications Current Medications: Generic Name Dose Route Start Last Admin Trade Name Freq PRN Reason Stop Dose Admin Acetaminophen 650 mg 04/13/22 22:46 04/14/22 17:31 Acetaminophen 325 Mg Tab PO 650 mg Q6H PRN Administration Pain, Mild (1-3) Buspirone HCl 5 mg 04/14/22 08:00 04/15/22 14:13 Buspirone 5 Mg Tab PO 5 mg TID SONJA Administration Citalopram Hydrobromide 40 mg 04/14/22 11:00 04/15/22 09:18 Citalopram 20 Mg Tab PO 40 mg QDAY SONJA Administration Gabapentin 300 mg 04/14/22 08:00 04/15/22 14:13 Gabapentin 300 Mg Cap PO 300 mg TID SONJA Administration Hydroxyzine Pamoate 25 mg 04/13/22 22:40 04/13/22 23:19 Hydroxyzine Pamoate 25 Mg Cap PO 25 mg Q6H PRN Administration Anxiety Insulin Human Lispro 0 unit 04/13/22 22:00 04/15/22 16:35 Insulin Lispro 100 Unit/Ml SUB-Q 2 unit ACHS SONJA Administration Protocol Quetiapine Fumarate 25 mg 04/14/22 14:00 04/15/22 14:13 Quetiapine 25 Mg Tab PO 25 mg TID SONJA Administration Tizanidine HCl 4 mg 04/13/22 22:45 04/15/22 14:13 Tizanidine Tab 4 Mg Tab PO 4 mg Q8H PRN Administration Muscle Spasm Trazodone HCl 50 mg 04/14/22 22:00 04/14/22 21:57 Trazodone 50 Mg Tab PO 50 mg QHS SONJA Administration
[2022-04-15] MEDS: traZODone 50 MG TAB PO SCH (21:09)
--- NOTE | 2022-04-16 09:49 | Progress Note ---
Subjective Date of service: 04/16/22 Principal diagnosis: bipolar disorder Subjective Comment: The patient was seen today. He is calm and cooperative. He says he's having pain in his neck. The patient also says his eyes are itching and burning. He denies SI/HI or hallucinations. 04/15 The patient was seen today. He is calm and cooperative. He denies SI/HI or hallucinations of any kind. REVIEW OF SYSTEMS ROS cannot be reliably obtained from the patient due to her confusion and somnolence. Constitutional: Negative for weight loss ENT: Negative for stridor Respiratory: Negative for cough or hemoptysis All other systems reviewed and are negative MENTAL STATUS EXAMINATION General Appearance and Behavior: Age appropriate, wearing appropriate clothes, cooperative, polite with questioning, good eye contact Cooperation: cooperative Psychomotor Behavior: Psychomotor normal Mood: good Affect and affective range: congruent with stated affect Thought Process: Goal directed Thought Content: None Speech: Normal volume, Regular rate and rhythm Suicidal Ideation: Denies Homicidal Ideation: Denies Hallucination: Denies Delusions: None elicited Impulse Control: Limited Insight and Judgment: Limited Memory: Intact Attention:attentive Orientation: Alert and oriented Diagnoses: Bipolar Disorder Treatment Plan Patient will be admitted for inpatient psychiatric evaluation, medication adjustment and close monitoring The patient's behavior, mood, sleep and appetite will be closely monitored. Patient will be enrolled in individual and group therapeutic sessions and encouraged to attend. Patient will be provided with a safe and structured environment. Patient's physical health needs will be addressed by the Hospitalist. Hospitalist Consulted Labs including CBC, CMP, Lipid profile and Hemoglobin A1C ordered Social Assessment will be completed and the Hyperbaric Technologist will work with patient and family to ensure a suitable and safe disposition Medication adjustment will be made as clinically indicated Visine 2 drops q4h prn itching/burning The patient agreed on the treatment plan, understood LOS: 7 days Case staffed with Dr. Cruz Medications and Allergies Allergies Allergy/AdvReac Type Severity Reaction Status Date / Time No Known Allergies Allergy Verified 04/14/22 11:25 Home Medications Medication Instructions Recorded Confirmed Last Taken Type Acetaminophen [Tylenol] 650 mg PO Q6HR PRN 04/13/22 04/13/22 Unknown History AtorvaSTATin [Lipitor] 20 mg PO HS 04/13/22 04/13/22 Unknown History Gabapentin [Neurontin] 300 mg PO TID 04/13/22 04/13/22 Unknown History Insulin Glargine [Lantus VIAL] 40 unit SUB-Q QHS 04/13/22 04/13/22 Unknown History Nabumetone [Relafen] 500 mg PO DAILY 04/13/22 04/13/22 Unknown History QUEtiapine [SEROquel] 25 mg PO BID 04/13/22 04/13/22 Unknown History busPIRone [Buspar] 5 mg PO TID 04/13/22 04/13/22 Unknown History hydrOXYzine HCL [Atarax] 25 mg PO Q6HR PRN 04/13/22 04/13/22 Unknown History lisinopriL [Lisinopril] 20 mg PO DAILY 04/13/22 04/13/22 Unknown History tiZANidine [Zanaflex 4mg TAB] 4 mg PO TID PRN 04/13/22 04/13/22 Unknown History Active Meds: Active Medications Acetaminophen (Acetaminophen 325 Mg Tab) 650 mg PO Q6H PRN PRN Reason: Pain, Mild (1-3) Last Admin: 04/14/22 17:31 Dose: 650 mg Buspirone HCl (Buspirone 5 Mg Tab) 5 mg PO TID [facility] Last Admin: 04/15/22 21:09 Dose: 5 mg Citalopram Hydrobromide (Citalopram 20 Mg Tab) 40 mg PO QDAY [facility] Last Admin: 04/15/22 09:18 Dose: 40 mg Gabapentin (Gabapentin 300 Mg Cap) 300 mg PO TID [facility] Last Admin: 04/15/22 21:09 Dose: 300 mg Hydroxyzine Pamoate (Hydroxyzine Pamoate 25 Mg Cap) 25 mg PO Q6H PRN PRN Reason: Anxiety Last Admin: 04/13/22 23:19 Dose: 25 mg Insulin Human Lispro (Insulin Lispro 100 Unit/Ml) 0 unit SUB-Q [facility]; Protocol Last Admin: 04/15/22 21:32 Dose: 2 unit Quetiapine Fumarate (Quetiapine 25 Mg Tab) 25 mg PO TID [facility] Last Admin: 04/15/22 21:09 Dose: 25 mg Tizanidine HCl (Tizanidine Tab 4 Mg Tab) 4 mg PO Q8H PRN PRN Reason: Muscle Spasm Last Admin: 04/15/22 21:09 Dose: 4 mg Trazodone HCl (Trazodone 50 Mg Tab) 50 mg PO QHS SONJA Last Admin: 04/15/22 21:09 Dose: 50 mg Results - Results Labs/Vitals: Laboratory Last Values WBC 3.7 K/mm3 (4.5-11.0) L 04/13/22 21:12 RBC 4.24 M/mm3 (3.65-5.03) 04/13/22 21:12 Hgb 13.0 gm/dl (11.8-15.2) 04/13/22 21:12 Hct 37.1 % (35.5-45.6) 04/13/22 21:12 MCV 88 fl (84-94) 04/13/22 21:12 MCH 31 pg (28-32) 04/13/22 21:12 MCHC 35 % (32-34) H 04/13/22 21:12 RDW 13.3 % (13.2-15.2) 04/13/22 21:12 Plt Count 139 K/mm3 (140-440) L 04/13/22 21:12 Lymph % (Auto) Gourmet Coffee Attendant 04/13/22 21:12 Add Manual Diff Complete 04/13/22 21:12 Total Counted 100 04/13/22 21:12 Seg Neutrophils % G[employer]met Coffee Attendant 04/13/22 21:12 Seg Neuts % (Manual) 28.0 % (40.0-70.0) L 04/13/22 21:12 Band Neutrophils % 0 % 04/13/22 21:12 Lymphocytes % (Manual) 64.0 % (13.4-35.0) H 04/13/22 21:12 Reactive Lymphs % (Man) 0 % 04/13/22 21:12 Monocytes % (Manual) 7.0 % (0.0-7.3) 04/13/22 21:12 Eosinophils % (Manual) 0 % (0.0-4.3) 04/13/22 21:12 Basophils % (Manual) 1.0 % (0.0-1.8) 04/13/22 21:12 Metamyelocytes % 0 % 04/13/22 21:12 Myelocytes % 0 % 04/13/22 21:12 Promyelocytes % 0 % 04/13/22 21:12 Blast Cells % 0 % 04/13/22 21:12 Nucleated RBC % Not Reportable 04/13/22 21:12 Seg Neutrophils # Man 1.0 K/mm3 (1.8-7.7) L 04/13/22 21:12 Band Neutrophils # 0.0 K/mm3 04/13/22 21:12 Lymphocytes # (Manual) 2.4 K/mm3 (1.2-5.4) 04/13/22 21:12 Abs React Lymphs (Man) 0.0 K/mm3 04/13/22 21:12 Monocytes # (Manual) 0.3 K/mm3 (0.0-0.8) 04/13/22 21:12 Eosinophils # (Manual) 0.0 K/mm3 (0.0-0.4) 04/13/22 21:12 Basophils # (Manual) 0.0 K/mm3 (0.0-0.1) 04/13/22 21:12 Metamyelocytes # 0.0 K/mm3 04/13/22 21:12 Myelocytes # 0.0 K/mm3 04/13/22 21:12 Promyelocytes # 0.0 K/mm3 04/13/22 21:12 Blast Cells # 0.0 K/mm3 04/13/22 21:12 WBC Morphology Not Reportable 04/13/22 21:12 Hypersegmented Neuts Not Reportable 04/13/22 21:12 Hyposegmented Neuts Not Reportable 04/13/22 21:12 Hypogranular Neuts Not Reportable 04/13/22 21:12 Smudge Cells Not Reportable 04/13/22 21:12 Toxic Granulation Not Reportable 04/13/22 21:12 Toxic Vacuolation Not Reportable 04/13/22 21:12 Dohle Bodies Not Reportable 04/13/22 21:12 Pelger-Huet Anomaly Not Reportable 04/13/22 21:12 Davida Rods Not Reportable 04/13/22 21:12 Platelet Estimate Consistent w auto 04/13/22 21:12 Clumped Platelets Not Reportable 04/13/22 21:12 Plt Clumps, EDTA Not Reportable 04/13/22 21:12 Large Platelets Not Reportable 04/13/22 21:12 Giant Platelets Not Reportable 04/13/22 21:12 Platelet Satelliting Not Reportable 04/13/22 21:12 Plt Morphology Comment Not Reportable 04/13/22 21:12 RBC Morphology Normal 04/13/22 21:12 Dimorphic RBCs Not Reportable 04/13/22 21:12 Polychromasia Not Reportable 04/13/22 21:12 Hypochromasia Not Reportable 04/13/22 21:12 Poikilocytosis Not Reportable 04/13/22 21:12 Anisocytosis Not Reportable 04/13/22 21:12 Microcytosis Not Reportable 04/13/22 21:12 Macrocytosis Not Reportable 04/13/22 21:12 Spherocytes Not Reportable 04/13/22 21:12 Pappenheimer Bodies Not Reportable 04/13/22 21:12 Sickle Cells Not Reportable 04/13/22 21:12 Target Cells Not Reportable 04/13/22 21:12 Tear Drop Cells Not Reportable 04/13/22 21:12 Ovalocytes Not Reportable 04/13/22 21:12 Helmet Cells Not Reportable 04/13/22 21:12 Boat[place] Bodies Not Reportable 04/13/22 21:12 [place] Rings Not Reportable 04/13/22 21:12 Martina Cells Not Reportable 04/13/22 21:12 Bite Cells Not Reportable 04/13/22 21:12 Crenated Cell Not Reportable 04/13/22 21:12 Elliptocytes Not Reportable 04/13/22 21:12 Acanthocytes (Spur) Not Reportable 04/13/22 21:12 Rouleaux Not Reportable 04/13/22 21:12 Hemoglobin C Crystals Not Reportable 04/13/22 21:12 Schistocytes Not Reportable 04/13/22 21:12 Malaria parasites Not Reportable 04/13/22 21:12 Jose Bodies Not Reportable 04/13/22 21:12 Hem Pathologist Commnt No 04/13/22 21:12 Sodium 142 mmol/L (137-145) 04/13/22 21:12 Potassium 4.0 mmol/L (3.6-5.0) 04/13/22 21:12 Chloride 108.7 mmol/L (98-107) H 04/13/22 21:12 Carbon Dioxide 23 mmol/L (22-30) 04/13/22 21:12 Anion Gap 14 mmol/L 04/13/22 21:12 BUN 11 mg/dL (9-20) 04/13/22 21:12 Creatinine 0.8 mg/dL (0.8-1.3) 04/13/22 21:12 Estimated GFR > 60 ml/min 04/13/22 21:12 BUN/Creatinine Ratio 14 % 04/13/22 21:12 Glucose 158 mg/dL (75-100) H 04/13/22 21:12 POC Glucose 156 mg/dL (70-105) H 04/16/22 06:22 Calcium 8.9 mg/dL (8.4-10.2) 04/13/22 21:12 Total Bilirubin 0.30 mg/dL (0.1-1.2) 04/13/22 21:12 AST 39 units/L (5-40) 04/13/22 21:12 ALT 38 units/L (7-56) 04/13/22 21:12 Alkaline Phosphatase 65 units/L (35-129) 04/13/22 21:12 Total Protein 6.3 g/dL (6.3-8.2) 04/13/22 21:12 Albumin 3.6 g/dL (3.9-5) L 04/13/22 21:12 Albumin/Globulin Ratio 1.3 % 04/13/22 21:12 Last Vital Signs Temp 98.4 F 04/15/22 19:45 Pulse 81 04/15/22 19:45 Resp 17 04/15/22 19:45 BP 100/68 04/15/22 19:45 Pulse Ox 98 04/15/22 19:45
[2022-04-16] MEDS: QUEtiapine 25 MG TAB PO SCH ×3 (09:51→22:03)
[2022-04-16] MEDS: busPIRone 5 MG TAB PO SCH ×3 (09:51→21:45)
[2022-04-16] MEDS: GABAPENTIN 300 MG CAP PO SCH ×3 (09:51→21:45)
[2022-04-16] MEDS: CITALOPRAM 20 MG TAB PO SCH (09:51)
[2022-04-16] MEDS: hydrOXYzine PAMOATE 25 MG CAP PO PRN (09:52)
[2022-04-16] MEDS: ACETAMINOPHEN 325 MG TAB PO PRN ×2 (09:52→22:03)
[2022-04-16] MEDS: tiZANidine TAB 4 MG TAB PO PRN (10:02)
[2022-04-16] MEDS: INSULIN LISPRO 100 UNIT/ML SUB-Q SCH ×4 (10:12→22:04)
--- NOTE | 2022-04-16 13:47 | Progress Note ---
Assessment and Plan Assessment and plan: Suicidal ideation/danger to self/severe anxiety/severe depression; Management per psych team, supportive care -- Hypertension; moderate control Resume home antihypertensives and as needed medications -- Peripheral neuropathy; Resume home gabapentin and supportive care -- Dyslipidemia; Low-cholesterol diet, and statin -- Type 2 diabetes mellitus; Accu-Chek, sliding scale coverage, ADA diet Long-acting insulin as needed -- DVT prophylaxis; SCDs while resting, ambulate as tolerated -- Full CODE STATUS; Closely monitor the patient and adjust the management as needed Plan of care reviewed with the patient and his nurse Thank you for this consultation We will follow the patient along with you Call us with questions Closely monitor the patient and adjust management as needed Psych recommendations noted and appreciated History Interval history: I have seen him in in his room this morning Patient is sleepy feels very tired Complains of neck pain vital signs noted No new overnight events reported by the nursing Hospitalist Physical - Physical exam Narrative exam: Patient was lying in the bed and sleepy Refused physical examination Patient is alert and awake not in acute distress Comfortable - Constitutional Vitals: Temp Pulse Resp BP Pulse Ox 98.8 F 82 18 114/56 100 04/16/22 09:01 04/16/22 09:01 04/16/22 09:01 04/16/22 09:01 04/16/22 09:01 General appearance: Present: no acute distress, well-nourished - Respiratory Respiratory: bilateral: diminished, negative: rales, rhonchi, wheezing - Abdominal General gastrointestinal: soft Results - Labs CBC & Chem 7: 04/13/22 21:12 04/13/22 21:12 Labs: Laboratory Last Values WBC 3.7 K/mm3 (4.5-11.0) L 04/13/22 21:12 RBC 4.24 M/mm3 (3.65-5.03) 04/13/22 21:12 Hgb 13.0 gm/dl (11.8-15.2) 04/13/22 21:12 Hct 37.1 % (35.5-45.6) 04/13/22 21:12 MCV 88 fl (84-94) 04/13/22 21:12 MCH 31 pg (28-32) 04/13/22 21:12 MCHC 35 % (32-34) H 04/13/22 21:12 RDW 13.3 % (13.2-15.2) 04/13/22 21:12 Plt Count 139 K/mm3 (140-440) L 04/13/22 21:12 Lymph % (Auto) Auto Bumper Straightener 04/13/22 21:12 Add Manual Diff Complete 04/13/22 21:12 Total Counted 100 04/13/22 21:12 Seg Neutrophils % Auto Bumper Straightener 04/13/22 21:12 Seg Neuts % (Manual) 28.0 % (40.0-70.0) L 04/13/22 21:12 Band Neutrophils % 0 % 04/13/22 21:12 Lymphocytes % (Manual) 64.0 % (13.4-35.0) H 04/13/22 21:12 Reactive Lymphs % (Man) 0 % 04/13/22 21:12 Monocytes % (Manual) 7.0 % (0.0-7.3) 04/13/22 21:12 Eosinophils % (Manual) 0 % (0.0-4.3) 04/13/22 21:12 Basophils % (Manual) 1.0 % (0.0-1.8) 04/13/22 21:12 Metamyelocytes % 0 % 04/13/22 21:12 Myelocytes % 0 % 04/13/22 21:12 Promyelocytes % 0 % 04/13/22 21:12 Blast Cells % 0 % 04/13/22 21:12 Nucleated RBC % Not Reportable 04/13/22 21:12 Seg Neutrophils # Man 1.0 K/mm3 (1.8-7.7) L 04/13/22 21:12 Band Neutrophils # 0.0 K/mm3 04/13/22 21:12 Lymphocytes # (Manual) 2.4 K/mm3 (1.2-5.4) 04/13/22 21:12 Abs React Lymphs (Man) 0.0 K/mm3 04/13/22 21:12 Monocytes # (Manual) 0.3 K/mm3 (0.0-0.8) 04/13/22 21:12 Eosinophils # (Manual) 0.0 K/mm3 (0.0-0.4) 04/13/22 21:12 Basophils # (Manual) 0.0 K/mm3 (0.0-0.1) 04/13/22 21:12 Metamyelocytes # 0.0 K/mm3 04/13/22 21:12 Myelocytes # 0.0 K/mm3 04/13/22 21:12 Promyelocytes # 0.0 K/mm3 04/13/22 21:12 Blast Cells # 0.0 K/mm3 04/13/22 21:12 WBC Morphology Not Reportable 04/13/22 21:12 Hypersegmented Neuts Not Reportable 04/13/22 21:12 Hyposegmented Neuts Not Reportable 04/13/22 21:12 Hypogranular Neuts Not Reportable 04/13/22 21:12 Smudge Cells Not Reportable 04/13/22 21:12 Toxic Granulation Not Reportable 04/13/22 21:12 Toxic Vacuolation Not Reportable 04/13/22 21:12 Dohle Bodies Not Reportable 04/13/22 21:12 Pelger-Huet Anomaly Not Reportable 04/13/22 21:12 Davida Rods Not Reportable 04/13/22 21:12 Platelet Estimate Consistent w auto 04/13/22 21:12 Clumped Platelets Not Reportable 04/13/22 21:12 Plt Clumps, EDTA Not Reportable 04/13/22 21:12 Large Platelets Not Reportable 04/13/22 21:12 Giant Platelets Not Reportable 04/13/22 21:12 Platelet Satelliting Not Reportable 04/13/22 21:12 Plt Morphology Comment Not Reportable 04/13/22 21:12 RBC Morphology Normal 04/13/22 21:12 Dimorphic RBCs Not Reportable 04/13/22 21:12 Polychromasia Not Reportable 04/13/22 21:12 Hypochromasia Not Reportable 04/13/22 21:12 Poikilocytosis Not Reportable 04/13/22 21:12 Anisocytosis Not Reportable 04/13/22 21:12 Microcytosis Not Reportable 04/13/22 21:12 Macrocytosis Not Reportable 04/13/22 21:12 Spherocytes Not Reportable 04/13/22 21:12 Pappenheimer Bodies Not Reportable 04/13/22 21:12 Sickle Cells Not Reportable 04/13/22 21:12 Target Cells Not Reportable 04/13/22 21:12 Tear Drop Cells Not Reportable 04/13/22 21:12 Ovalocytes Not Reportable 04/13/22 21:12 Helmet Cells Not Reportable 04/13/22 21:12 Boat[place] Bodies Not Reportable 04/13/22 21:12 [place] Rings Not Reportable 04/13/22 21:12 Martina Cells Not Reportable 04/13/22 21:12 Bite Cells Not Reportable 04/13/22 21:12 Crenated Cell Not Reportable 04/13/22 21:12 Elliptocytes Not Reportable 04/13/22 21:12 Acanthocytes (Spur) Not Reportable 04/13/22 21:12 Rouleaux Not Reportable 04/13/22 21:12 Hemoglobin C Crystals Not Reportable 04/13/22 21:12 Schistocytes Not Reportable 04/13/22 21:12 Malaria parasites Not Reportable 04/13/22 21:12 Jose Bodies Not Reportable 04/13/22 21:12 Hem Pathologist Commnt No 04/13/22 21:12 Sodium 142 mmol/L (137-145) 04/13/22 21:12 Potassium 4.0 mmol/L (3.6-5.0) 04/13/22 21:12 Chloride 108.7 mmol/L (98-107) H 04/13/22 21:12 Carbon Dioxide 23 mmol/L (22-30) 04/13/22 21:12 Anion Gap 14 mmol/L 04/13/22 21:12 BUN 11 mg/dL (9-20) 04/13/22 21:12 Creatinine 0.8 mg/dL (0.8-1.3) 04/13/22 21:12 Estimated GFR > 60 ml/min 04/13/22 21:12 BUN/Creatinine Ratio 14 % 04/13/22 21:12 Glucose 158 mg/dL (75-100) H 04/13/22 21:12 POC Glucose 137 mg/dL (70-105) H 04/16/22 11:41 Calcium 8.9 mg/dL (8.4-10.2) 04/13/22 21:12 Total Bilirubin 0.30 mg/dL (0.1-1.2) 04/13/22 21:12 AST 39 units/L (5-40) 04/13/22 21:12 ALT 38 units/L (7-56) 04/13/22 21:12 Alkaline Phosphatase 65 units/L (35-129) 04/13/22 21:12 Total Protein 6.3 g/dL (6.3-8.2) 04/13/22 21:12 Albumin 3.6 g/dL (3.9-5) L 04/13/22 21:12 Albumin/Globulin Ratio 1.3 % 04/13/22 21:12 Olivera/IV: Voiding Method Toilet Active Medications - Current Medications Current Medications: Generic Name Dose Route Start Last Admin Trade Name Freq PRN Reason Stop Dose Admin Acetaminophen 650 mg 04/13/22 22:46 04/16/22 09:52 Acetaminophen 325 Mg Tab PO 650 mg Q6H PRN Administration Pain, Mild (1-3) Buspirone HCl 5 mg 04/14/22 08:00 04/16/22 09:51 Buspirone 5 Mg Tab PO 5 mg TID SONJA Administration Citalopram Hydrobromide 40 mg 04/14/22 11:00 04/16/22 09:51 Citalopram 20 Mg Tab PO 40 mg QDAY SONJA Administration Gabapentin 300 mg 04/14/22 08:00 04/16/22 09:51 Gabapentin 300 Mg Cap PO 300 mg TID SONJA Administration Hydroxyzine Pamoate 25 mg 04/13/22 22:40 04/16/22 09:52 Hydroxyzine Pamoate 25 Mg Cap PO 25 mg Q6H PRN Administration Anxiety Insulin Human Lispro 0 unit 04/13/22 22:00 04/16/22 12:00 Insulin Lispro 100 Unit/Ml SUB-Q Not Given ACHS [facility] Protocol Naphazoline HCl/Pheniramine Maleate 2 drops 04/16/22 11:00 Naphazoline/Pheniramine 0.025/0.3% Ophth Soln 15 Ml OU Q6H PRN burning Quetiapine Fumarate 25 mg 04/14/22 14:00 04/16/22 09:51 Quetiapine 25 Mg Tab PO 25 mg TID SONJA Administration Tizanidine HCl 4 mg 04/13/22 22:45 04/16/22 10:02 Tizanidine Tab 4 Mg Tab PO 4 mg Q8H PRN Administration Muscle Spasm Trazodone HCl 50 mg 04/14/22 22:00 04/15/22 21:09 Trazodone 50 Mg Tab PO 50 mg QHS SONJA Administration
[2022-04-16] MEDS: NAPHAZOLINE/PHENIRAMINE 0.025/0.3% OPHTH SOLN 15 ML OU PRN (17:18)
[2022-04-16] MEDS: traZODone 50 MG TAB PO SCH (21:45)
--- NOTE | 2022-04-17 08:27 | Progress Note ---
Assessment and Plan Assessment and plan: --Danger to self; Continue supervision, fall precautions Supportive care --severe anxiety and depression Management per psych -- DVT prophylaxis; SCDs while resting, ambulate as tolerated --Full CODE STATUS Continue current management We will closely monitor the patient and adjust management as needed Plan of care reviewed with the patient and her nurse Thank you for this consultation We will follow the patient along with you Call us with questions History Interval history: I have seen the patient in the activity room Patient was found on the bench complains of neck pain Patient had multiple surgeries past is on pain medications as well as muscle re laxers vital signs noted No new overnight events reported by the nursing Hospitalist Physical - Constitutional Vitals: Temp Pulse Resp BP Pulse Ox 97.5 F L 89 17 110/58 99 04/16/22 22:00 04/16/22 22:00 04/16/22 22:00 04/16/22 22:00 04/16/22 22:00 General appearance: Present: no acute distress, well-nourished Results - Labs CBC & Chem 7: 04/13/22 21:12 04/13/22 21:12 Labs: Laboratory Last Values WBC 3.7 K/mm3 (4.5-11.0) L 04/13/22 21:12 RBC 4.24 M/mm3 (3.65-5.03) 04/13/22 21:12 Hgb 13.0 gm/dl (11.8-15.2) 04/13/22 21:12 Hct 37.1 % (35.5-45.6) 04/13/22 21:12 MCV 88 fl (84-94) 04/13/22 21:12 MCH 31 pg (28-32) 04/13/22 21:12 MCHC 35 % (32-34) H 04/13/22 21:12 RDW 13.3 % (13.2-15.2) 04/13/22 21:12 Plt Count 139 K/mm3 (140-440) L 04/13/22 21:12 Lymph % (Auto) Head Greenskeeper 04/13/22 21:12 Add Manual Diff Complete 04/13/22 21:12 Total Counted 100 04/13/22 21:12 Seg Neutrophils % Head Greenskeeper 04/13/22 21:12 Seg Neuts % (Manual) 28.0 % (40.0-70.0) L 04/13/22 21:12 Band Neutrophils % 0 % 04/13/22 21:12 Lymphocytes % (Manual) 64.0 % (13.4-35.0) H 04/13/22 21:12 Reactive Lymphs % (Man) 0 % 04/13/22 21:12 Monocytes % (Manual) 7.0 % (0.0-7.3) 04/13/22 21:12 Eosinophils % (Manual) 0 % (0.0-4.3) 04/13/22 21:12 Basophils % (Manual) 1.0 % (0.0-1.8) 04/13/22 21:12 Metamyelocytes % 0 % 04/13/22 21:12 Myelocytes % 0 % 04/13/22 21:12 Promyelocytes % 0 % 04/13/22 21:12 Blast Cells % 0 % 04/13/22 21:12 Nucleated RBC % Not Reportable 04/13/22 21:12 Seg Neutrophils # Man 1.0 K/mm3 (1.8-7.7) L 04/13/22 21:12 Band Neutrophils # 0.0 K/mm3 04/13/22 21:12 Lymphocytes # (Manual) 2.4 K/mm3 (1.2-5.4) 04/13/22 21:12 Abs React Lymphs (Man) 0.0 K/mm3 04/13/22 21:12 Monocytes # (Manual) 0.3 K/mm3 (0.0-0.8) 04/13/22 21:12 Eosinophils # (Manual) 0.0 K/mm3 (0.0-0.4) 04/13/22 21:12 Basophils # (Manual) 0.0 K/mm3 (0.0-0.1) 04/13/22 21:12 Metamyelocytes # 0.0 K/mm3 04/13/22 21:12 Myelocytes # 0.0 K/mm3 04/13/22 21:12 Promyelocytes # 0.0 K/mm3 04/13/22 21:12 Blast Cells # 0.0 K/mm3 04/13/22 21:12 WBC Morphology Not Reportable 04/13/22 21:12 Hypersegmented Neuts Not Reportable 04/13/22 21:12 Hyposegmented Neuts Not Reportable 04/13/22 21:12 Hypogranular Neuts Not Reportable 04/13/22 21:12 Smudge Cells Not Reportable 04/13/22 21:12 Toxic Granulation Not Reportable 04/13/22 21:12 Toxic Vacuolation Not Reportable 04/13/22 21:12 Dohle Bodies Not Reportable 04/13/22 21:12 Pelger-Huet Anomaly Not Reportable 04/13/22 21:12 Davida Rods Not Reportable 04/13/22 21:12 Platelet Estimate Consistent w auto 04/13/22 21:12 Clumped Platelets Not Reportable 04/13/22 21:12 Plt Clumps, EDTA Not Reportable 04/13/22 21:12 Large Platelets Not Reportable 04/13/22 21:12 Giant Platelets Not Reportable 04/13/22 21:12 Platelet Satelliting Not Reportable 04/13/22 21:12 Plt Morphology Comment Not Reportable 04/13/22 21:12 RBC Morphology Normal 04/13/22 21:12 Dimorphic RBCs Not Reportable 04/13/22 21:12 Polychromasia Not Reportable 04/13/22 21:12 Hypochromasia Not Reportable 04/13/22 21:12 Poikilocytosis Not Reportable 04/13/22 21:12 Anisocytosis Not Reportable 04/13/22 21:12 Microcytosis Not Reportable 04/13/22 21:12 Macrocytosis Not Reportable 04/13/22 21:12 Spherocytes Not Reportable 04/13/22 21:12 Pappenheimer Bodies Not Reportable 04/13/22 21:12 Sickle Cells Not Reportable 04/13/22 21:12 Target Cells Not Reportable 04/13/22 21:12 Tear Drop Cells Not Reportable 04/13/22 21:12 Ovalocytes Not Reportable 04/13/22 21:12 Helmet Cells Not Reportable 04/13/22 21:12 Boateng-[place] Bodies Not Reportable 04/13/22 21:12 [place] Rings Not Reportable 04/13/22 21:12 Martina Cells Not Reportable 04/13/22 21:12 Bite Cells Not Reportable 04/13/22 21:12 Crenated Cell Not Reportable 04/13/22 21:12 Elliptocytes Not Reportable 04/13/22 21:12 Acanthocytes (Spur) Not Reportable 04/13/22 21:12 Rouleaux Not Reportable 04/13/22 21:12 Hemoglobin C Crystals Not Reportable 04/13/22 21:12 Schistocytes Not Reportable 04/13/22 21:12 Malaria parasites Not Reportable 04/13/22 21:12 Jose Bodies Not Reportable 04/13/22 21:12 Hem Pathologist Commnt No 04/13/22 21:12 Sodium 142 mmol/L (137-145) 04/13/22 21:12 Potassium 4.0 mmol/L (3.6-5.0) 04/13/22 21:12 Chloride 108.7 mmol/L (98-107) H 04/13/22 21:12 Carbon Dioxide 23 mmol/L (22-30) 04/13/22 21:12 Anion Gap 14 mmol/L 04/13/22 21:12 BUN 11 mg/dL (9-20) 04/13/22 21:12 Creatinine 0.8 mg/dL (0.8-1.3) 04/13/22 21:12 Estimated GFR > 60 ml/min 04/13/22 21:12 BUN/Creatinine Ratio 14 % 04/13/22 21:12 Glucose 158 mg/dL (75-100) H 04/13/22 21:12 POC Glucose 167 mg/dL (70-105) H 04/17/22 06:37 Calcium 8.9 mg/dL (8.4-10.2) 04/13/22 21:12 Total Bilirubin 0.30 mg/dL (0.1-1.2) 04/13/22 21:12 AST 39 units/L (5-40) 04/13/22 21:12 ALT 38 units/L (7-56) 04/13/22 21:12 Alkaline Phosphatase 65 units/L (35-129) 04/13/22 21:12 Total Protein 6.3 g/dL (6.3-8.2) 04/13/22 21:12 Albumin 3.6 g/dL (3.9-5) L 04/13/22 21:12 Albumin/Globulin Ratio 1.3 % 04/13/22 21:12 Olivera/IV: Voiding Method Toilet Active Medications - Current Medications Current Medications: Generic Name Dose Route Start Last Admin Trade Name Freq PRN Reason Stop Dose Admin Acetaminophen 650 mg 04/13/22 22:46 04/16/22 22:03 Acetaminophen 325 Mg Tab PO 650 mg Q6H PRN Administration Pain, Mild (1-3) Buspirone HCl 5 mg 04/14/22 08:00 04/16/22 21:45 Buspirone 5 Mg Tab PO 5 mg TID SONJA Administration Citalopram Hydrobromide 40 mg 04/14/22 11:00 04/16/22 09:51 Citalopram 20 Mg Tab PO 40 mg QDAY SONJA Administration Gabapentin 300 mg 04/14/22 08:00 04/16/22 21:45 Gabapentin 300 Mg Cap PO 300 mg TID SONJA Administration Hydroxyzine Pamoate 25 mg 04/13/22 22:40 04/16/22 09:52 Hydroxyzine Pamoate 25 Mg Cap PO 25 mg Q6H PRN Administration Anxiety Insulin Human Lispro 0 unit 04/13/22 22:00 04/16/22 22:04 Insulin Lispro 100 Unit/Ml SUB-Q 4 unit ACHS SONJA Administration Protocol Naphazoline HCl/Pheniramine Maleate 2 drops 04/16/22 11:00 04/16/22 17:18 Naphazoline/Pheniramine 0.025/0.3% Ophth Soln 15 Ml OU 2 drops Q6H PRN Administration burning Quetiapine Fumarate 25 mg 04/14/22 14:00 04/16/22 22:03 Quetiapine 25 Mg Tab PO 25 mg TID SONJA Administration Tizanidine HCl 4 mg 04/13/22 22:45 04/16/22 10:02 Tizanidine Tab 4 Mg Tab PO 4 mg Q8H PRN Administration Muscle Spasm Trazodone HCl 50 mg 04/14/22 22:00 04/16/22 21:45 Trazodone 50 Mg Tab PO 50 mg QHS SONJA Administration
[2022-04-17] MEDS: CITALOPRAM 20 MG TAB PO SCH (09:57)
[2022-04-17] MEDS: GABAPENTIN 300 MG CAP PO SCH ×3 (09:58→21:17)
[2022-04-17] MEDS: INSULIN LISPRO 100 UNIT/ML SUB-Q SCH ×4 (09:59→22:40)
[2022-04-17] MEDS: QUEtiapine 25 MG TAB PO SCH ×3 (09:59→21:18)
[2022-04-17] MEDS: busPIRone 5 MG TAB PO SCH ×3 (10:00→21:17)
[2022-04-17] MEDS: NAPHAZOLINE/PHENIRAMINE 0.025/0.3% OPHTH SOLN 15 ML OU PRN (10:09)
[2022-04-17] MEDS: ACETAMINOPHEN 325 MG TAB PO PRN (10:09)
--- NOTE | 2022-04-17 11:37 | Discharge Summary ---
Providers - Providers Date of Admission: 04/13/22 16:27 Date of discharge: 04/17/22 Attending physician: AYUSH TOWNSEND MD 04/13/22 16:02 Consult to Physician [CONS] Routine Comment: Consulting Provider: MARKY CÁRDENAS Physician Instructions: Reason For Exam: medical management 04/13/22 21:14 Consult to Dietitian/Nutrition [CONS] Routine Physician Instructions: Reason For Exam: Reason for Consult: Diet education Primary care physician: DIGITAL CONTENT SPECIALIST Hospitalization Reason for admission: depression Admitting Diagnosis: F31.9 - BIPOLAR DISORDER, UNSPECIFIED Condition: Stable Hospital course: The patient was provided inpatient psychiatric treatment with safe and support hector care, medication adjustment, adverse effect monitoring, medical evaluations, medical treatments, assessment and psycho-education. The patient's mood, cognition, behavior, moral support are improved and stabilized. St the time of discharge, the patient had no endangering behavior and no debilitating adverse effects. The patient agreed on potential consequences of no treatment and gave informed consent. Disposition: 01 HOME / SELF CARE / HOMELESS Time spent for discharge: 35 Allergies/Adverse Reactions: Allergies No Known Allergies Allergy (Verified 04/14/22 11:25) Vital Signs: Last Vital Signs Temp 97.5 F L 04/16/22 22:00 Pulse 86 04/17/22 09:08 Resp 16 04/17/22 09:08 BP 116/61 04/17/22 09:08 Pulse Ox 100 04/17/22 09:08 Last Lab: Laboratory Last Values WBC 3.7 K/mm3 (4.5-11.0) L 04/13/22 21:12 RBC 4.24 M/mm3 (3.65-5.03) 04/13/22 21:12 Hgb 13.0 gm/dl (11.8-15.2) 04/13/22 21:12 Hct 37.1 % (35.5-45.6) 04/13/22 21:12 MCV 88 fl (84-94) 04/13/22 21:12 MCH 31 pg (28-32) 04/13/22 21:12 MCHC 35 % (32-34) H 04/13/22 21:12 RDW 13.3 % (13.2-15.2) 04/13/22 21:12 Plt Count 139 K/mm3 (140-440) L 04/13/22 21:12 Lymph % (Auto) Computer Support Analyst 04/13/22 21:12 Add Manual Diff Complete 04/13/22 21:12 Total Counted 100 04/13/22 21:12 Seg Neutrophils % Computer Support Analyst 04/13/22 21:12 Seg Neuts % (Manual) 28.0 % (40.0-70.0) L 04/13/22 21:12 Band Neutrophils % 0 % 04/13/22 21:12 Lymphocytes % (Manual) 64.0 % (13.4-35.0) H 04/13/22 21:12 Reactive Lymphs % (Man) 0 % 04/13/22 21:12 Monocytes % (Manual) 7.0 % (0.0-7.3) 04/13/22 21:12 Eosinophils % (Manual) 0 % (0.0-4.3) 04/13/22 21:12 Basophils % (Manual) 1.0 % (0.0-1.8) 04/13/22 21:12 Metamyelocytes % 0 % 04/13/22 21:12 Myelocytes % 0 % 04/13/22 21:12 Promyelocytes % 0 % 04/13/22 21:12 Blast Cells % 0 % 04/13/22 21:12 Nucleated RBC % Not Reportable 04/13/22 21:12 Seg Neutrophils # Man 1.0 K/mm3 (1.8-7.7) L 04/13/22 21:12 Band Neutrophils # 0.0 K/mm3 04/13/22 21:12 Lymphocytes # (Manual) 2.4 K/mm3 (1.2-5.4) 04/13/22 21:12 Abs React Lymphs (Man) 0.0 K/mm3 04/13/22 21:12 Monocytes # (Manual) 0.3 K/mm3 (0.0-0.8) 04/13/22 21:12 Eosinophils # (Manual) 0.0 K/mm3 (0.0-0.4) 04/13/22 21:12 Basophils # (Manual) 0.0 K/mm3 (0.0-0.1) 04/13/22 21:12 Metamyelocytes # 0.0 K/mm3 04/13/22 21:12 Myelocytes # 0.0 K/mm3 04/13/22 21:12 Promyelocytes # 0.0 K/mm3 04/13/22 21:12 Blast Cells # 0.0 K/mm3 04/13/22 21:12 WBC Morphology Not Reportable 04/13/22 21:12 Hypersegmented Neuts Not Reportable 04/13/22 21:12 Hyposegmented Neuts Not Reportable 04/13/22 21:12 Hypogranular Neuts Not Reportable 04/13/22 21:12 Smudge Cells Not Reportable 04/13/22 21:12 Toxic Granulation Not Reportable 04/13/22 21:12 Toxic Vacuolation Not Reportable 04/13/22 21:12 Dohle Bodies Not Reportable 04/13/22 21:12 Pelger-Huet Anomaly Not Reportable 04/13/22 21:12 Davida Rods Not Reportable 04/13/22 21:12 Platelet Estimate Consistent w auto 04/13/22 21:12 Clumped Platelets Not Reportable 04/13/22 21:12 Plt Clumps, EDTA Not Reportable 04/13/22 21:12 Large Platelets Not Reportable 04/13/22 21:12 Giant Platelets Not Reportable 04/13/22 21:12 Platelet Satelliting Not Reportable 04/13/22 21:12 Plt Morphology Comment Not Reportable 04/13/22 21:12 RBC Morphology Normal 04/13/22 21:12 Dimorphic RBCs Not Reportable 04/13/22 21:12 Polychromasia Not Reportable 04/13/22 21:12 Hypochromasia Not Reportable 04/13/22 21:12 Poikilocytosis Not Reportable 04/13/22 21:12 Anisocytosis Not Reportable 04/13/22 21:12 Microcytosis Not Reportable 04/13/22 21:12 Macrocytosis Not Reportable 04/13/22 21:12 Spherocytes Not Reportable 04/13/22 21:12 Pappenheimer Bodies Not Reportable 04/13/22 21:12 Sickle Cells Not Reportable 04/13/22 21:12 Target Cells Not Reportable 04/13/22 21:12 Tear Drop Cells Not Reportable 04/13/22 21:12 Ovalocytes Not Reportable 04/13/22 21:12 Helmet Cells Not Reportable 04/13/22 21:12 [place] Bodies Not Reportable 04/13/22 21:12 [place] Rings Not Reportable 04/13/22 21:12 [place] Cells Not Reportable 04/13/22 21:12 Bite Cells Not Reportable 04/13/22 21:12 Crenated Cell Not Reportable 04/13/22 21:12 Elliptocytes Not Reportable 04/13/22 21:12 Acanthocytes (Spur) Not Reportable 04/13/22 21:12 Rouleaux Not Reportable 04/13/22 21:12 Hemoglobin C Crystals Not Reportable 04/13/22 21:12 Schistocytes Not Reportable 04/13/22 21:12 Malaria parasites Not Reportable 04/13/22 21:12 Jose Bodies Not Reportable 04/13/22 21:12 Hem Pathologist Commnt No 04/13/22 21:12 Sodium 142 mmol/L (137-145) 04/13/22 21:12 Potassium 4.0 mmol/L (3.6-5.0) 04/13/22 21:12 Chloride 108.7 mmol/L (98-107) H 04/13/22 21:12 Carbon Dioxide 23 mmol/L (22-30) 04/13/22 21:12 Anion Gap 14 mmol/L 04/13/22 21:12 BUN 11 mg/dL (9-20) 04/13/22 21:12 Creatinine 0.8 mg/dL (0.8-1.3) 04/13/22 21:12 Estimated GFR > 60 ml/min 04/13/22 21:12 BUN/Creatinine Ratio 14 % 04/13/22 21:12 Glucose 158 mg/dL (75-100) H 04/13/22 21:12 POC Glucose 184 mg/dL (70-105) H 04/17/22 11:03 Calcium 8.9 mg/dL (8.4-10.2) 04/13/22 21:12 Total Bilirubin 0.30 mg/dL (0.1-1.2) 04/13/22 21:12 AST 39 units/L (5-40) 04/13/22 21:12 ALT 38 units/L (7-56) 04/13/22 21:12 Alkaline Phosphatase 65 units/L (35-129) 04/13/22 21:12 Total Protein 6.3 g/dL (6.3-8.2) 04/13/22 21:12 Albumin 3.6 g/dL (3.9-5) L 04/13/22 21:12 Albumin/Globulin Ratio 1.3 % 04/13/22 21:12 Core Measure Documentation - Palliative Care Palliative Care/ Comfort Measures: Not Applicable - Core Measures Any of the following diagnoses?: none Exam - Constitutional Vitals: Temp Pulse Resp BP Pulse Ox 97.5 F L 86 16 116/61 100 04/16/22 22:00 04/17/22 09:08 04/17/22 09:08 04/17/22 09:08 04/17/22 09:08 General appearance: Present: no acute distress - EENT Eyes: Present: PERRL, EOM intact ENT: hearing intact, clear oral mucosa - Neck Neck: Present: supple, normal ROM - Respiratory Respiratory effort: normal Plan Activity: advance as tolerated Weight Bearing Status: Weight Bear as Tolerated Care Plan Goals: Maintain good and stable mental health Plan of Treatment: The patient should be compliant with medications, not to use drugs, and not to drink alcohol. The patient understands that if suicidal ideas, homicidal ideas or any endangering feeling arise, the patient should seek assistance including, but not limited to crisis hotline, and emergency room. Assessment: Bipolar Disorder Follow up with: PRIMARY CARE, [Primary Care Provider] - 7 Days Prescriptions: traZODone [Desyrel] 50 mg PO QHS #30 tablet Citalopram [Celexa] 40 mg PO QDAY #30 tablet QUEtiapine [SEROquel] 25 mg PO TID #90 tablet
[2022-04-17] MEDS: traZODone 50 MG TAB PO SCH (21:18)
--- NOTE | 2022-04-18 09:02 | Discharge Summary ---
Providers - Providers Date of Admission: 04/13/22 16:27 Date of discharge: 04/18/22 Attending physician: AYUSH TOWNSEND MD 04/13/22 16:02 Consult to Physician [CONS] Routine Comment: Consulting Provider: MARKY CÁRDENAS Physician Instructions: Reason For Exam: medical management 04/13/22 21:14 Consult to Dietitian/Nutrition [CONS] Routine Physician Instructions: Reason For Exam: Reason for Consult: Diet education Primary care physician: PATIENT SERVICE COORDINATOR Hospitalization Reason for admission: depression Admitting Diagnosis: F31.9 - BIPOLAR DISORDER, UNSPECIFIED Condition: Stable Hospital course: The patient was provided inpatient psychiatric treatment with safe and supportive care, medication adjustment, adverse effect monitoring, medical evaluations, medical treatments, assessment and psycho-education. The patient's mood, cognition, behavior, moral support are improved and stabilized. St the time of discharge, the patient had no endangering behavior and no debilitating adverse effects. The patient agreed on potential consequences of no treatment and gave informed consent. Disposition: 01 HOME / SELF CARE / HOMELESS Time spent for discharge: 35 Allergies/Adverse Reactions: Allergies No Known Allergies Allergy (Verified 04/14/22 11:25) Vital Signs: Last Vital Signs Temp 97.5 F L 04/16/22 22:00 Pulse 86 04/17/22 09:08 Resp 16 04/17/22 09:08 BP 116/61 04/17/22 09:08 Pulse Ox 100 04/17/22 09:08 Last Lab: Laboratory Last Values WBC 3.7 K/mm3 (4.5-11.0) L 04/13/22 21:12 RBC 4.24 M/mm3 (3.65-5.03) 04/13/22 21:12 Hgb 13.0 gm/dl (11.8-15.2) 04/13/22 21:12 Hct 37.1 % (35.5-45.6) 04/13/22 21:12 MCV 88 fl (84-94) 04/13/22 21:12 MCH 31 pg (28-32) 04/13/22 21:12 MCHC 35 % (32-34) H 04/13/22 21:12 RDW 13.3 % (13.2-15.2) 04/13/22 21:12 Plt Count 139 K/mm3 (140-440) L 04/13/22 21:12 Lymph % (Auto) Mobile Therapist 04/13/22 21:12 Add Manual Diff Complete 04/13/22 21:12 Total Counted 100 04/13/22 21:12 Seg Neutrophils % Mobile Therapist 04/13/22 21:12 Seg Neuts % (Manual) 28.0 % (40.0-70.0) L 04/13/22 21:12 Band Neutrophils % 0 % 04/13/22 21:12 Lymphocytes % (Manual) 64.0 % (13.4-35.0) H 04/13/22 21:12 Reactive Lymphs % (Man) 0 % 04/13/22 21:12 Monocytes % (Manual) 7.0 % (0.0-7.3) 04/13/22 21:12 Eosinophils % (Manual) 0 % (0.0-4.3) 04/13/22 21:12 Basophils % (Manual) 1.0 % (0.0-1.8) 04/13/22 21:12 Metamyelocytes % 0 % 04/13/22 21:12 Myelocytes % 0 % 04/13/22 21:12 Promyelocytes % 0 % 04/13/22 21:12 Blast Cells % 0 % 04/13/22 21:12 Nucleated RBC % Not Reportable 04/13/22 21:12 Seg Neutrophils # Man 1.0 K/mm3 (1.8-7.7) L 04/13/22 21:12 Band Neutrophils # 0.0 K/mm3 04/13/22 21:12 Lymphocytes # (Manual) 2.4 K/mm3 (1.2-5.4) 04/13/22 21:12 Abs React Lymphs (Man) 0.0 K/mm3 04/13/22 21:12 Monocytes # (Manual) 0.3 K/mm3 (0.0-0.8) 04/13/22 21:12 Eosinophils # (Manual) 0.0 K/mm3 (0.0-0.4) 04/13/22 21:12 Basophils # (Manual) 0.0 K/mm3 (0.0-0.1) 04/13/22 21:12 Metamyelocytes # 0.0 K/mm3 04/13/22 21:12 Myelocytes # 0.0 K/mm3 04/13/22 21:12 Promyelocytes # 0.0 K/mm3 04/13/22 21:12 Blast Cells # 0.0 K/mm3 04/13/22 21:12 WBC Morphology Not Reportable 04/13/22 21:12 Hypersegmented Neuts Not Reportable 04/13/22 21:12 Hyposegmented Neuts Not Reportable 04/13/22 21:12 Hypogranular Neuts Not Reportable 04/13/22 21:12 Smudge Cells Not Reportable 04/13/22 21:12 Toxic Granulation Not Reportable 04/13/22 21:12 Toxic Vacuolation Not Reportable 04/13/22 21:12 Dohle Bodies Not Reportable 04/13/22 21:12 Pelger-Huet Anomaly Not Reportable 04/13/22 21:12 Davida Rods Not Reportable 04/13/22 21:12 Platelet Estimate Consistent w auto 04/13/22 21:12 Clumped Platelets Not Reportable 04/13/22 21:12 Plt Clumps, EDTA Not Reportable 04/13/22 21:12 Large Platelets Not Reportable 04/13/22 21:12 Giant Platelets Not Reportable 04/13/22 21:12 Platelet Satelliting Not Reportable 04/13/22 21:12 Plt Morphology Comment Not Reportable 04/13/22 21:12 RBC Morphology Normal 04/13/22 21:12 Dimorphic RBCs Not Reportable 04/13/22 21:12 Polychromasia Not Reportable 04/13/22 21:12 Hypochromasia Not Reportable 04/13/22 21:12 Poikilocytosis Not Reportable 04/13/22 21:12 Anisocytosis Not Reportable 04/13/22 21:12 Microcytosis Not Reportable 04/13/22 21:12 Macrocytosis Not Reportable 04/13/22 21:12 Spherocytes Not Reportable 04/13/22 21:12 Pappenheimer Bodies Not Reportable 04/13/22 21:12 Sickle Cells Not Reportable 04/13/22 21:12 Target Cells Not Reportable 04/13/22 21:12 Tear Drop Cells Not Reportable 04/13/22 21:12 Ovalocytes Not Reportable 04/13/22 21:12 Helmet Cells Not Reportable 04/13/22 21:12 [place] Bodies Not Reportable 04/13/22 21:12 [place] Rings Not Reportable 04/13/22 21:12 [place] Cells Not Reportable 04/13/22 21:12 Bite Cells Not Reportable 04/13/22 21:12 Crenated Cell Not Reportable 04/13/22 21:12 Elliptocytes Not Reportable 04/13/22 21:12 Acanthocytes (Spur) Not Reportable 04/13/22 21:12 Rouleaux Not Reportable 04/13/22 21:12 Hemoglobin C Crystals Not Reportable 04/13/22 21:12 Schistocytes Not Reportable 04/13/22 21:12 Malaria parasites Not Reportable 04/13/22 21:12 Jose Bodies Not Reportable 04/13/22 21:12 Hem Pathologist Commnt No 04/13/22 21:12 Sodium 142 mmol/L (137-145) 04/13/22 21:12 Potassium 4.0 mmol/L (3.6-5.0) 04/13/22 21:12 Chloride 108.7 mmol/L (98-107) H 04/13/22 21:12 Carbon Dioxide 23 mmol/L (22-30) 04/13/22 21:12 Anion Gap 14 mmol/L 04/13/22 21:12 BUN 11 mg/dL (9-20) 04/13/22 21:12 Creatinine 0.8 mg/dL (0.8-1.3) 04/13/22 21:12 Estimated GFR > 60 ml/min 04/13/22 21:12 BUN/Creatinine Ratio 14 % 04/13/22 21:12 Glucose 158 mg/dL (75-100) H 04/13/22 21:12 POC Glucose 214 mg/dL (70-105) H 04/18/22 06:57 Calcium 8.9 mg/dL (8.4-10.2) 04/13/22 21:12 Total Bilirubin 0.30 mg/dL (0.1-1.2) 04/13/22 21:12 AST 39 units/L (5-40) 04/13/22 21:12 ALT 38 units/L (7-56) 04/13/22 21:12 Alkaline Phosphatase 65 units/L (35-129) 04/13/22 21:12 Total Protein 6.3 g/dL (6.3-8.2) 04/13/22 21:12 Albumin 3.6 g/dL (3.9-5) L 04/13/22 21:12 Albumin/Globulin Ratio 1.3 % 04/13/22 21:12 Core Measure Documentation - Palliative Care Palliative Care/ Comfort Measures: Not Applicable - Core Measures Any of the following diagnoses?: none Exam - Constitutional Vitals: Temp Pulse Resp BP Pulse Ox 97.5 F L 86 16 116/61 100 04/16/22 22:00 04/17/22 09:08 04/17/22 09:08 04/17/22 09:08 04/17/22 09:08 General appearance: Present: no acute distress - EENT Eyes: Present: PERRL, EOM intact ENT: hearing intact, clear oral mucosa - Neck Neck: Present: supple, normal ROM - Respiratory Respiratory effort: normal Plan Activity: advance as tolerated Weight Bearing Status: Weight Bear as Tolerated Care Plan Goals: Maintain good and stable mental health Plan of Treatment: The patient should be compliant with medications, not to use drugs, and not to drink alcohol. The patient understands that if suicidal ideas, homicidal ideas or any endangering feeling arise, the patient should seek assistance including, but not limited to crisis hotline, and emergency room. Assessment: Bipolar Disorder Follow up with: PRIMARY CARE, [Primary Care Provider] - 7 Days Prescriptions: traZODone [Desyrel] 50 mg PO QHS #30 tablet Citalopram [Celexa] 40 mg PO QDAY #30 tablet QUEtiapine [SEROquel] 25 mg PO TID #90 tablet
--- NOTE | 2022-04-18 09:04 | Progress Note ---
Subjective Date of service: 04/17/22 Principal diagnosis: bipolar disorder Subjective Comment: The patient was seen today. He denies SI/HI or hallucinations of any kind. He is clear from psych and will discharge as soon as discharge planning if complete. REVIEW OF SYSTEMS ROS cannot be reliably obtained from the patient due to her confusion and somnolence. Constitutional: Negative for weight loss ENT: Negative for stridor Respiratory: Negative for cough or hemoptysis All other systems reviewed and are negative MENTAL STATUS EXAMINATION General Appearance and Behavior: Age appropriate, wearing appropriate clothes, cooperative, polite with questioning, good eye contact Cooperation: cooperative Psychomotor Behavior: Psychomotor normal Mood: good Affect and affective range: congruent with stated affect Thought Process: Goal directed Thought Content: None Speech: Normal volume, Regular rate and rhythm Suicidal Ideation: Denies Homicidal Ideation: Denies Hallucination: Denies Delusions: None elicited Impulse Control: Limited Insight and Judgment: Limited Memory: Intact Attention:attentive Orientation: Alert and oriented Diagnoses: Bipolar Disorder Treatment Plan Patient will be admitted for inpatient psychiatric evaluation, medication adjustment and close monitoring The patient's behavior, mood, sleep and appetite will be closely monitored. Patient will be enrolled in individual and group therapeutic sessions and encouraged to attend. Patient will be provided with a safe and structured environment. Patient's physical health needs will be addressed by the Hospitalist. Hospitalist Consulted Labs including CBC, CMP, Lipid profile and Hemoglobin A1C ordered Social Assessment will be completed and the Building Economist will work with patient and family to ensure a suitable and safe disposition Medication adjustment will be made as clinically indicated No changes made today The patient agreed on the treatment plan, understood LOS: 7 days Case staffed with Dr. Cruz Medications and Allergies Allergies Allergy/AdvReac Type Severity Reaction Status Date / Time No Known Allergies Allergy Verified 04/14/22 11:25 Home Medications Medication Instructions Recorded Confirmed Last Taken Type Acetaminophen [Tylenol] 650 mg PO Q6HR PRN 04/13/22 04/13/22 Unknown History AtorvaSTATin [Lipitor] 20 mg PO HS 04/13/22 04/13/22 Unknown History Gabapentin 300 mg PO TID 04/13/22 04/13/22 Unknown History Insulin Glargine [Lantus VIAL] 40 unit SUB-Q QHS 04/13/22 04/13/22 Unknown History Nabumetone [Relafen] 500 mg PO DAILY 04/13/22 04/13/22 Unknown History busPIRone [Buspar] 5 mg PO TID 04/13/22 04/13/22 Unknown History hydrOXYzine HCL [Atarax] 25 mg PO Q6HR PRN 04/13/22 04/13/22 Unknown History lisinopriL [Lisinopril] 20 mg PO DAILY 04/13/22 04/13/22 Unknown History tiZANidine [Zanaflex 4mg TAB] 4 mg PO TID PRN 04/13/22 04/13/22 Unknown History Citalopram [Celexa] 40 mg PO QDAY #30 tablet 04/17/22 Unknown Rx QUEtiapine [SEROquel] 25 mg PO TID #90 tablet 04/17/22 Unknown Rx traZODone [Desyrel] 50 mg PO QHS #30 tablet 04/17/22 Unknown Rx Active Meds: Active Medications Acetaminophen (Acetaminophen 325 Mg Tab) 650 mg PO Q6H PRN PRN Reason: Pain, Mild (1-3) Last Admin: 04/17/22 10:09 Dose: 650 mg Buspirone HCl (Buspirone 5 Mg Tab) 5 mg PO TID [facility] Last Admin: 04/17/22 21:17 Dose: 5 mg Citalopram Hydrobromide (Citalopram 20 Mg Tab) 40 mg PO QDAY [facility] Last Admin: 04/17/22 09:57 Dose: 40 mg Gabapentin (Gabapentin 300 Mg Cap) 300 mg PO TID [facility] Last Admin: 04/17/22 21:17 Dose: 300 mg Hydroxyzine Pamoate (Hydroxyzine Pamoate 25 Mg Cap) 25 mg PO Q6H PRN PRN Reason: Anxiety Last Admin: 04/16/22 09:52 Dose: 25 mg Insulin Human Lispro (Insulin Lispro 100 Unit/Ml) 0 unit SUB-Q [facility]; Protocol Last Admin: 04/17/22 22:40 Dose: 4 unit Naphazoline HCl/Pheniramine Maleate (Naphazoline/Pheniramine 0.025/0.3% Ophth Soln 15 Ml) 2 drops OU Q6H PRN PRN Reason: burning Last Admin: 04/17/22 10:09 Dose: 2 drops Quetiapine Fumarate (Quetiapine 25 Mg Tab) 25 mg PO TID [facility] Last Admin: 04/17/22 21:18 Dose: 25 mg Tizanidine HCl (Tizanidine Tab 4 Mg Tab) 4 mg PO Q8H PRN PRN Reason: Muscle Spasm Last Admin: 04/16/22 10:02 Dose: 4 mg Trazodone HCl (Trazodone 50 Mg Tab) 50 mg PO QHS [facility] Last Admin: 04/17/22 21:18 Dose: 50 mg Results - Results Labs/Vitals: Laboratory Last Values WBC 3.7 K/mm3 (4.5-11.0) L 04/13/22 21:12 RBC 4.24 M/mm3 (3.65-5.03) 04/13/22 21:12 Hgb 13.0 gm/dl (11.8-15.2) 04/13/22 21:12 Hct 37.1 % (35.5-45.6) 04/13/22 21:12 MCV 88 fl (84-94) 04/13/22 21:12 MCH 31 pg (28-32) 04/13/22 21:12 MCHC 35 % (32-34) H 04/13/22 21:12 RDW 13.3 % (13.2-15.2) 04/13/22 21:12 Plt Count 139 K/mm3 (140-440) L 04/13/22 21:12 Lymph % (Auto) Disability Hearing Officer 04/13/22 21:12 Add Manual Diff Complete 04/13/22 21:12 Total Counted 100 04/13/22 21:12 Seg Neutrophils % Disability Hearing Officer 04/13/22 21:12 Seg Neuts % (Manual) 28.0 % (40.0-70.0) L 04/13/22 21:12 Band Neutrophils % 0 % 04/13/22 21:12 Lymphocytes % (Manual) 64.0 % (13.4-35.0) H 04/13/22 21:12 Reactive Lymphs % (Man) 0 % 04/13/22 21:12 Monocytes % (Manual) 7.0 % (0.0-7.3) 04/13/22 21:12 Eosinophils % (Manual) 0 % (0.0-4.3) 04/13/22 21:12 Basophils % (Manual) 1.0 % (0.0-1.8) 04/13/22 21:12 Metamyelocytes % 0 % 04/13/22 21:12 Myelocytes % 0 % 04/13/22 21:12 Promyelocytes % 0 % 04/13/22 21:12 Blast Cells % 0 % 04/13/22 21:12 Nucleated RBC % Not Reportable 04/13/22 21:12 Seg Neutrophils # Man 1.0 K/mm3 (1.8-7.7) L 04/13/22 21:12 Band Neutrophils # 0.0 K/mm3 04/13/22 21:12 Lymphocytes # (Manual) 2.4 K/mm3 (1.2-5.4) 04/13/22 21:12 Abs React Lymphs (Man) 0.0 K/mm3 04/13/22 21:12 Monocytes # (Manual) 0.3 K/mm3 (0.0-0.8) 04/13/22 21:12 Eosinophils # (Manual) 0.0 K/mm3 (0.0-0.4) 04/13/22 21:12 Basophils # (Manual) 0.0 K/mm3 (0.0-0.1) 04/13/22 21:12 Metamyelocytes # 0.0 K/mm3 04/13/22 21:12 Myelocytes # 0.0 K/mm3 04/13/22 21:12 Promyelocytes # 0.0 K/mm3 04/13/22 21:12 Blast Cells # 0.0 K/mm3 04/13/22 21:12 WBC Morphology Not Reportable 04/13/22 21:12 Hypersegmented Neuts Not Reportable 04/13/22 21:12 Hyposegmented Neuts Not Reportable 04/13/22 21:12 Hypogranular Neuts Not Reportable 04/13/22 21:12 Smudge Cells Not Reportable 04/13/22 21:12 Toxic Granulation Not Reportable 04/13/22 21:12 Toxic Vacuolation Not Reportable 04/13/22 21:12 Dohle Bodies Not Reportable 04/13/22 21:12 Pelger-Huet Anomaly Not Reportable 04/13/22 21:12 Davida Rods Not Reportable 04/13/22 21:12 Platelet Estimate Consistent w auto 04/13/22 21:12 Clumped Platelets Not Reportable 04/13/22 21:12 Plt Clumps, EDTA Not Reportable 04/13/22 21:12 Large Platelets Not Reportable 04/13/22 21:12 Giant Platelets Not Reportable 04/13/22 21:12 Platelet Satelliting Not Reportable 04/13/22 21:12 Plt Morphology Comment Not Reportable 04/13/22 21:12 RBC Morphology Normal 04/13/22 21:12 Dimorphic RBCs Not Reportable 04/13/22 21:12 Polychromasia Not Reportable 04/13/22 21:12 Hypochromasia Not Reportable 04/13/22 21:12 Poikilocytosis Not Reportable 04/13/22 21:12 Anisocytosis Not Reportable 04/13/22 21:12 Microcytosis Not Reportable 04/13/22 21:12 Macrocytosis Not Reportable 04/13/22 21:12 Spherocytes Not Reportable 04/13/22 21:12 Pappenheimer Bodies Not Reportable 04/13/22 21:12 Sickle Cells Not Reportable 04/13/22 21:12 Target Cells Not Reportable 04/13/22 21:12 Tear Drop Cells Not Reportable 04/13/22 21:12 Ovalocytes Not Reportable 04/13/22 21:12 Helmet Cells Not Reportable 04/13/22 21:12 [place] Bodies Not Reportable 04/13/22 21:12 [place] Rings Not Reportable 04/13/22 21:12 [place] Cells Not Reportable 04/13/22 21:12 Bite Cells Not Reportable 04/13/22 21:12 Crenated Cell Not Reportable 04/13/22 21:12 Elliptocytes Not Reportable 04/13/22 21:12 Acanthocytes (Spur) Not Reportable 04/13/22 21:12 Rouleaux Not Reportable 04/13/22 21:12 Hemoglobin C Crystals Not Reportable 04/13/22 21:12 Schistocytes Not Reportable 04/13/22 21:12 Malaria parasites Not Reportable 04/13/22 21:12 Jose Bodies Not Reportable 04/13/22 21:12 Hem Pathologist Commnt No 04/13/22 21:12 Sodium 142 mmol/L (137-145) 04/13/22 21:12 Potassium 4.0 mmol/L (3.6-5.0) 04/13/22 21:12 Chloride 108.7 mmol/L (98-107) H 04/13/22 21:12 Carbon Dioxide 23 mmol/L (22-30) 04/13/22 21:12 Anion Gap 14 mmol/L 04/13/22 21:12 BUN 11 mg/dL (9-20) 04/13/22 21:12 Creatinine 0.8 mg/dL (0.8-1.3) 04/13/22 21:12 Estimated GFR > 60 ml/min 04/13/22 21:12 BUN/Creatinine Ratio 14 % 04/13/22 21:12 Glucose 158 mg/dL (75-100) H 04/13/22 21:12 POC Glucose 214 mg/dL (70-105) H 04/18/22 06:57 Calcium 8.9 mg/dL (8.4-10.2) 04/13/22 21:12 Total Bilirubin 0.30 mg/dL (0.1-1.2) 04/13/22 21:12 AST 39 units/L (5-40) 04/13/22 21:12 ALT 38 units/L (7-56) 04/13/22 21:12 Alkaline Phosphatase 65 units/L (35-129) 04/13/22 21:12 Total Protein 6.3 g/dL (6.3-8.2) 04/13/22 21:12 Albumin 3.6 g/dL (3.9-5) L 04/13/22 21:12 Albumin/Globulin Ratio 1.3 % 04/13/22 21:12 Last Vital Signs Temp 97.5 F L 04/16/22 22:00 Pulse 86 04/17/22 09:08 Resp 16 04/17/22 09:08 BP 116/61 04/17/22 09:08 Pulse Ox 100 04/17/22 09:08
[2022-04-18] MEDS: busPIRone 5 MG TAB PO SCH (09:05)
[2022-04-18] MEDS: QUEtiapine 25 MG TAB PO SCH (09:06)
[2022-04-18] MEDS: GABAPENTIN 300 MG CAP PO SCH (09:06)
[2022-04-18] MEDS: CITALOPRAM 20 MG TAB PO SCH (09:06)
[2022-04-18] MEDS: INSULIN LISPRO 100 UNIT/ML SUB-Q SCH (09:08)
[2022-04-18 11:13] VITALS: BP 107/75
--- NOTE | 2022-04-18 11:21 | Progress Note ---
Hospitalist Physical - Constitutional Vitals: Temp Pulse Resp BP Pulse Ox 97.7 F 92 H 18 107/75 98 04/18/22 08:00 04/18/22 08:00 04/18/22 08:00 04/18/22 08:00 04/18/22 08:00 General appearance: Present: no acute distress Results - Labs CBC & Chem 7: 04/13/22 21:12 04/13/22 21:12 Labs: Laboratory Last Values WBC 3.7 K/mm3 (4.5-11.0) L 04/13/22 21:12 RBC 4.24 M/mm3 (3.65-5.03) 04/13/22 21:12 Hgb 13.0 gm/dl (11.8-15.2) 04/13/22 21:12 Hct 37.1 % (35.5-45.6) 04/13/22 21:12 MCV 88 fl (84-94) 04/13/22 21:12 MCH 31 pg (28-32) 04/13/22 21:12 MCHC 35 % (32-34) H 04/13/22 21:12 RDW 13.3 % (13.2-15.2) 04/13/22 21:12 Plt Count 139 K/mm3 (140-440) L 04/13/22 21:12 Lymph % (Auto) [employer] 04/13/22 21:12 Add Manual Diff Complete 04/13/22 21:12 Total Counted 100 04/13/22 21:12 Seg Neutrophils % [employer] 04/13/22 21:12 Seg Neuts % (Manual) 28.0 % (40.0-70.0) L 04/13/22 21:12 Band Neutrophils % 0 % 04/13/22 21:12 Lymphocytes % (Manual) 64.0 % (13.4-35.0) H 04/13/22 21:12 Reactive Lymphs % (Man) 0 % 04/13/22 21:12 Monocytes % (Manual) 7.0 % (0.0-7.3) 04/13/22 21:12 Eosinophils % (Manual) 0 % (0.0-4.3) 04/13/22 21:12 Basophils % (Manual) 1.0 % (0.0-1.8) 04/13/22 21:12 Metamyelocytes % 0 % 04/13/22 21:12 Myelocytes % 0 % 04/13/22 21:12 Promyelocytes % 0 % 04/13/22 21:12 Blast Cells % 0 % 04/13/22 21:12 Nucleated RBC % Not Reportable 04/13/22 21:12 Seg Neutrophils # Man 1.0 K/mm3 (1.8-7.7) L 04/13/22 21:12 Band Neutrophils # 0.0 K/mm3 04/13/22 21:12 Lymphocytes # (Manual) 2.4 K/mm3 (1.2-5.4) 04/13/22 21:12 Abs React Lymphs (Man) 0.0 K/mm3 04/13/22 21:12 Monocytes # (Manual) 0.3 K/mm3 (0.0-0.8) 04/13/22 21:12 Eosinophils # (Manual) 0.0 K/mm3 (0.0-0.4) 04/13/22 21:12 Basophils # (Manual) 0.0 K/mm3 (0.0-0.1) 04/13/22 21:12 Metamyelocytes # 0.0 K/mm3 04/13/22 21:12 Myelocytes # 0.0 K/mm3 04/13/22 21:12 Promyelocytes # 0.0 K/mm3 04/13/22 21:12 Blast Cells # 0.0 K/mm3 04/13/22 21:12 WBC Morphology Not Reportable 04/13/22 21:12 Hypersegmented Neuts Not Reportable 04/13/22 21:12 Hyposegmented Neuts Not Reportable 04/13/22 21:12 Hypogranular Neuts Not Reportable 04/13/22 21:12 Smudge Cells Not Reportable 04/13/22 21:12 Toxic Granulation Not Reportable 04/13/22 21:12 Toxic Vacuolation Not Reportable 04/13/22 21:12 Dohle Bodies Not Reportable 04/13/22 21:12 Pelger-Huet Anomaly Not Reportable 04/13/22 21:12 Davida Rods Not Reportable 04/13/22 21:12 Platelet Estimate Consistent w auto 04/13/22 21:12 Clumped Platelets Not Reportable 04/13/22 21:12 Plt Clumps, EDTA Not Reportable 04/13/22 21:12 Large Platelets Not Reportable 04/13/22 21:12 Giant Platelets Not Reportable 04/13/22 21:12 Platelet Satelliting Not Reportable 04/13/22 21:12 Plt Morphology Comment Not Reportable 04/13/22 21:12 RBC Morphology Normal 04/13/22 21:12 Dimorphic RBCs Not Reportable 04/13/22 21:12 Polychromasia Not Reportable 04/13/22 21:12 Hypochromasia Not Reportable 04/13/22 21:12 Poikilocytosis Not Reportable 04/13/22 21:12 Anisocytosis Not Reportable 04/13/22 21:12 Microcytosis Not Reportable 04/13/22 21:12 Macrocytosis Not Reportable 04/13/22 21:12 Spherocytes Not Reportable 04/13/22 21:12 Pappenheimer Bodies Not Reportable 04/13/22 21:12 Sickle Cells Not Reportable 04/13/22 21:12 Target Cells Not Reportable 04/13/22 21:12 Tear Drop Cells Not Reportable 04/13/22 21:12 Ovalocytes Not Reportable 04/13/22 21:12 Helmet Cells Not Reportable 04/13/22 21:12 Boateng-Tupman Bodies Not Reportable 04/13/22 21:12 [place] Rings Not Reportable 04/13/22 21:12 Martina Cells Not Reportable 04/13/22 21:12 Bite Cells Not Reportable 04/13/22 21:12 Crenated Cell Not Reportable 04/13/22 21:12 Elliptocytes Not Reportable 04/13/22 21:12 Acanthocytes (Spur) Not Reportable 04/13/22 21:12 Rouleaux Not Reportable 04/13/22 21:12 Hemoglobin C Crystals Not Reportable 04/13/22 21:12 Schistocytes Not Reportable 04/13/22 21:12 Malaria parasites Not Reportable 04/13/22 21:12 Jose Bodies Not Reportable 04/13/22 21:12 Hem Pathologist Commnt No 04/13/22 21:12 Sodium 142 mmol/L (137-145) 04/13/22 21:12 Potassium 4.0 mmol/L (3.6-5.0) 04/13/22 21:12 Chloride 108.7 mmol/L (98-107) H 04/13/22 21:12 Carbon Dioxide 23 mmol/L (22-30) 04/13/22 21:12 Anion Gap 14 mmol/L 04/13/22 21:12 BUN 11 mg/dL (9-20) 04/13/22 21:12 Creatinine 0.8 mg/dL (0.8-1.3) 04/13/22 21:12 Estimated GFR > 60 ml/min 04/13/22 21:12 BUN/Creatinine Ratio 14 % 04/13/22 21:12 Glucose 158 mg/dL (75-100) H 04/13/22 21:12 POC Glucose 214 mg/dL (70-105) H 04/18/22 06:57 Calcium 8.9 mg/dL (8.4-10.2) 04/13/22 21:12 Total Bilirubin 0.30 mg/dL (0.1-1.2) 04/13/22 21:12 AST 39 units/L (5-40) 04/13/22 21:12 ALT 38 units/L (7-56) 04/13/22 21:12 Alkaline Phosphatase 65 units/L (35-129) 04/13/22 21:12 Total Protein 6.3 g/dL (6.3-8.2) 04/13/22 21:12 Albumin 3.6 g/dL (3.9-5) L 04/13/22 21:12 Albumin/Globulin Ratio 1.3 % 04/13/22 21:12 Olivera/IV: Voiding Method Toilet Active Medications - Current Medications Current Medications: Generic Name Dose Route Start Last Admin Trade Name Freq PRN Reason Stop Dose Admin Acetaminophen 650 mg 04/13/22 22:46 04/17/22 10:09 Acetaminophen 325 Mg Tab PO 650 mg Q6H PRN Administration Pain, Mild (1-3) Buspirone HCl 5 mg 04/14/22 08:00 04/18/22 09:05 Buspirone 5 Mg Tab PO 5 mg TID SONAJ Administration Citalopram Hydrobromide 40 mg 04/14/22 11:00 04/18/22 09:06 Citalopram 20 Mg Tab PO 20 mg QDAY SONJA Administration Gabapentin 300 mg 04/14/22 08:00 04/18/22 09:06 Gabapentin 300 Mg Cap PO 300 mg TID SONJA Administration Hydroxyzine Pamoate 25 mg 04/13/22 22:40 04/16/22 09:52 Hydroxyzine Pamoate 25 Mg Cap PO 25 mg Q6H PRN Administration Anxiety Insulin Human Lispro 0 unit 04/13/22 22:00 04/18/22 09:08 Insulin Lispro 100 Unit/Ml SUB-Q 3 unit ACHS SONJA Administration Protocol Naphazoline HCl/Pheniramine Maleate 2 drops 04/16/22 11:00 04/17/22 10:09 Naphazoline/Pheniramine 0.025/0.3% Ophth Soln 15 Ml OU 2 drops Q6H PRN Administration burning Quetiapine Fumarate 25 mg 04/14/22 14:00 04/18/22 09:06 Quetiapine 25 Mg Tab PO 25 mg TID SONJA Administration Tizanidine HCl 4 mg 04/13/22 22:45 04/16/22 10:02 Tizanidine Tab 4 Mg Tab PO 4 mg Q8H PRN Administration Muscle Spasm Trazodone HCl 50 mg 04/14/22 22:00 04/17/22 21:18 Trazodone 50 Mg Tab PO 50 mg QHS SONJA Administration Nutrition/Malnutrition Assess - Dietary Evaluation Nutrition/Malnutrition Findings: Nutrition Notes Start: 04/15/22 09:46 Freq: Status: Active Protocol: Document 04/17/22 15:58 WENDY (Rec: 04/17/22 16:07 [email or web address] [id number]) Nutrition Notes Need for Assessment generated from: MD Order,Education Initial or Follow up Brief Note Current Diagnosis Diabetes,Hyperlipidemia Other Pertinent Diagnosis Bipolar Disorder, Anxiety, Depression, Peripheral Neuropathy,... Current Diet Regular Diet (since D 04/13). Height 5 ft 7 in Weight 72.9 kg [place] Body Weight (kg) 67.27 BMI 25.2 Intake Prior to Admission Good Weight change and time frame Pt states having, unintentionally, loss between 2 and 13 lb of body weight recently. Weight Status Overweight Subjective/Other Information RD consult for nutrition education assessment. Pt's PO intake of meals has been Good (75-100%) and well tolerated, according to ADL notes. Pt is on Room Air, O2 saturation @ 98%, according to Vital Signs notes. Percent of energy/protein needs met: Prescribed Regular Diet provides for energy/protein needs (2,289 Kcal/89 g) during LOS. Nutrition Intervention Follow-Up By: 04/24/22 Additional Comments Nutrition education will be provided at F/U, if feasible. Continue monitoring food tolerance, %PO intake of meals , and BM.
== END 2022-04-18 14:30 | disposition home or self-care (01) | DRG 885 ==
LOC: 3A 16:59 → UNDOADMIN 16:59 → 5A 04-13 16:27
PROVIDERS: ADMIT Psychiatry & Neurology Psychiatry; ATTEND Psychiatry & Neurology Psychiatry
DX: F31.9 Bipolar disorder, unspecified (principal); F41.8 Other specified anxiety disorders; E78.5 Hyperlipidemia, unspecified; I10 Essential (primary) hypertension; E11.9 Type 2 diabetes mellitus without complications
CPT/HCPCS: 36415; 80053; 82962; 85007; 85025; G0378; Q9967; J1815

== ENCOUNTER 2022-04-13 14:36 | Emergency (ER) | payer MEDICAID | END 2022-04-13 15:00 | disposition left against medical advice (07) | LOC: ED 14:36 | DX: Z00.00 Encounter for general adult medical examination without abnormal findings (principal); Z53.21 Procedure and treatment not carried out due to patient leaving prior to being seen by health care provider ==